=== PATIENT | male | born 1945 | race Caucasian/White ===

== ENCOUNTER 2023-03-21 08:45 | Outpatient (CLI) | payer MEDICARE, BC, SELFPAY | END 2023-03-21 08:46 | disposition home or self-care (01) | LOC: AMB 03-23 16:17 | PROVIDERS: PCP Family Medicine; Visit Provider Family Medicine | DX: R53.1 Weakness (principal) | CPT/HCPCS: A0425; A0429 ==

== ENCOUNTER 2023-03-21 09:42 | Inpatient (IN) | payer MEDICARE, BC, SELFPAY ==
[2023-03-21] VITALS (17 sets, daily range): BP systolic 83–144; BP diastolic 46–84; PULSE 59–67; RESP 14–22; TEMP 36.4–37.6; O2SAT 90–97; BMI 59.1
--- NOTE | 2023-03-21 11:00 | ED.GENADULT ---
HPI - General Adult General Chief complaint: Unspecified Complaint, Adult Stated complaint: Fall, weakness Time Seen by Provider: 03/21/23 09:44 History of Present Illness HPI narrative: lives at home with and daughter. EMS report unclean conditions in the home, pt unkept. found on the floor unable to get himself up. pt weighs approx 400 lbs. daughter is care transition coordinator, is disabled. pt has open wound to right side abd. has no complaints 78-year-old man presenting to the emergency department brought by EMS accompanied by daughter Zulema and son Jackson. He does not have any particular complaints moist but has been having some mid left chest discomfort not exactly pleuritic that has been present for a few days now. He would associate this historically with pneumonia he says. Daughter cares for him I believe formally as the FEATHER EDGER living in the home as of the last year or so. Fritz is spouse has also been ill having just returned to home a couple days ago. Son Jackson last month lost his . This morning Fritz apparently got up when normally would just be in the bedroom transition to commode and back, attempted to walk to the mini Fridge and fell. He notes that his knees just crack crunch. Does not describe any injury to his knees. No new neck or back pain. Does not report hitting his head either. Was not able to get up and was probably down for 3 or 4 hours. Apparently has just developed a small cough but otherwise is in usual state of health. Compromised by severe obesity. Prefers to lie generally on his left side and so carefully monitored for skin breakdown here. Will then roll to his right really likes to keep the urinal. Lying on his back tends to make it harder to breathe. He has not had any fever. Does have apparently underlying diagnosis of COPD. Would presume [place]. Does not sound like is on oxygen. Was not chilled until got to this emergency department; sounds like related to the coolness of the room? In assessing I see generalized redness over the left thigh area and Band-Aid in place has apparently likes to scratch this area. With last hospitalization per family report was transferred [facility] this facility [facility] [place]. Upon reviewing old records it looks like this was April of 2021. Discussion has been engaged in conversation about hospice. He did apparently said to EMS today just let me here by my . EMS noted home to be dirty. Daughter says that she has been trying to keep him rolled off of 1 side where he can end up in his urine for a time. Chronically dry mouth. Related Data Home Medications Medication Instructions Recorded Confirmed albuterol sulfate 90 mcg/actuation 2 inh inhalation Q4H PRN 03/21/23 03/21/23 aerosol inhaler (Ventolin HFA) allopurinol 300 mg tablet 300 mg PO DAILY gout pain 03/21/23 03/21/23 amiodarone 200 mg tablet 200 mg PO DAILY 03/21/23 03/21/23 apixaban 5 mg tablet (Eliquis) 5 mg PO BID 03/21/23 03/21/23 atorvastatin 40 mg tablet 40 mg PO QHS 03/21/23 03/21/23 buspirone 15 mg tablet 15 mg PO BID 03/21/23 03/21/23 cholecalciferol (vitamin D3) 50 50 mcg PO DAILY 03/21/23 03/21/23 mcg (2,000 unit) capsule fluticasone furoate 200 1 inh inhalation DAILY 03/21/23 03/21/23 mcg/actuation blister powder for inhalation (Arnuity Ellipta) ipratropium 0.5 mg-albuterol 3 mg 3 ml inhalation Q6H PRN 03/21/23 03/21/23 (2.5 mg base)/3 mL nebulization soln lisinopril 2.5 mg tablet 2.5 mg PO HS 03/21/23 03/21/23 loperamide 2 mg tablet 2 mg PO Q6H PRN 03/21/23 03/21/23 metoprolol succinate 50 mg 50 mg PO DAILY 03/21/23 03/21/23 tablet,extended release 24 hr omeprazole 20 mg capsule,delayed 20 mg PO DAILY 03/21/23 03/21/23 release potassium chloride 10 mEq 20 meq PO DAILY 03/21/23 03/21/23 tablet,extended release torsemide 20 mg tablet 20 mg PO BID 03/21/23 03/21/23 umeclidinium 62.5 mcg/actuation 1 inh inhalation DAILY 03/21/23 03/21/23 blister powder for inhalation (Incruse Ellipta) Allergies Allergy/AdvReac Type Severity Reaction Status Date / Time No Known Drug Allergies Allergy Verified 03/21/23 15:16 Review of Systems Status of ROS: Reports: 6 or more systems reviewed and unremarkable except as noted in History and below [facility] Medical History (Updated 03/21/23 @ 20:30 by Yandy Butts MD) BMI 50.0-59.9, adult ?Z68.43 - Body mass index [BMI] 50.0-59.9, adult (ICD-10) Non-insulin dependent diabetes mellitus GHAZALA (obstructive sleep apnea) ?G47.33 - Obstructive sleep apnea (adult) (pediatric) (ICD-10) Hyperlipidemia ?E78.5 - Hyperlipidemia, unspecified (ICD-10) Essential hypertension ?I10 - Essential (primary) hypertension (ICD-10) Stage 3a chronic kidney disease (CKD) ?N18.31 - Chronic kidney disease, stage 3a (ICD-10) Heart failure with reduced ejection fraction ?I50.20 - Unspecified systolic (congestive) heart failure (ICD-10) Surgical History (Updated 03/21/23 @ 15:00 by Yandy Butts MD) Amputation of left great toe ?S98.112A - Complete traumatic amputation of left great toe, initial encounter (ICD-10) H/O endoscopy ?Z98.890 - Other specified postprocedural states (ICD-10) Hx of colonoscopy ?Z98.890 - Other specified postprocedural states (ICD-10) H/O parathyroidectomy ?Z98.890 - Other specified postprocedural states (ICD-10) ?Z90.89 - Acquired absence of other organs (ICD-10) Social History (Updated 03/21/23 @ 16:04 by Yandy Butts MD) Narrative: Lives with daughter and . Uses walker for ambulation. Son Jackson would be medical decision maker if needed. Nonsmoker, no concerning ETOH use. Requests DNR/DNI status. What is your current living situation?: I presently have a place to live Problems where you live: water leaks Problems where you live details: water leaks in the basement In the past 12 months, utilities in danger of being shut off: no In past 12 months, lack of transportation kept you from medical appts, meetings, work, or getting things needed for daily living: no In the past 12 mos, have been you worried that your food would run out before you had money to buy more?: never true In the past 12 mos, the food you bought just didn't last and you didn't have money to buy more?: never true Highest level of school completed/degree received: high school graduate Smoking Status: Former smoker What tobacco products do you use: cigarettes Smoking quit date/years: >15 years ago How often do you have a drink containing alcohol: never AUDIT-C Alcohol total score: 0 Non-prescribed substance use: denies use Caffeine: Yes (occasional) How often does anyone, including family, friends and others, physically hurt you: never How often does anyone, including family, friends and others, insult or talk down to you: never How often does anyone, including family, friends and others, threaten you with harm: never How often does anyone, including family, friends and others, scream or curse at you: never service: No Exam Narrative: Exam Narrative: Here with appropriately attentive and helpful family. Pleasant. Fully alert. Mildly labored but does not appear short of breath necessarily. Rather dry lips and very dry mouth. Cranial nerves 2-12 intact. Pupils are 3 mm and equal. Head looks to be atraumatic. With some difficulty in assistance by son and daughter, lift him upright in the bed. Lungs sound to be clear. Heart is in a regular rate and rhythm. Distant but no murmur auscultated. Abdomen is obese soft appears to be nontender until palpation in the right lower abdominal pannus. Mildly tender. There is erythema calor and induration broadly. Not actually with significant intertrigo. There is a little serous fluid on the surface but no clear ulceration. The left thigh and hip area is more darkly erythematous with calor and the some induration. Not so tender to palpation. Band-Aid is noted in an area of dry skin but I do not see significant breakdown here either. Centrally though there is some erythema. Daughter reports that this is an area that has just healed and had been an ulceration. Lower extremities with what looks to be more chronic dependent edema 1+. Nails are thickened. I do not see inflammatory changes below the knee. Knees look to be without acute injury. Genitourinary with generally erythematous scrotal tissue but not indurated or with significant calor. Const: Vital Signs, click to edit/add: Vital Signs - 24 hr 03/21/23 10:05 03/21/23 11:02 03/21/23 11:32 Temperature 97.6 F Pulse Rate 62 66 Pulse Rate [Right Femoral] 61 Respiratory Rate 22 14 16 Blood Pressure 104/65 111/69 Blood Pressure [Ri ght Upper Arm] 144/74 H Pulse Oximetry 94 91 94 Oxygen Delivery Me thod Room Air Nasal Cannula Oxygen Flow Rate 2 03/21/23 12:32 03/21/23 13:03 03/21/23 13:33 Temperature Pulse Rate 62 61 66 Pulse Rate [Right Femoral] Respiratory Rate 16 16 16 Blood Pressure 105/51 L 101/66 107/58 L Blood Pressure [Ri ght Upper Arm] Pulse Oximetry 94 96 96 Oxygen Delivery Me thod Nasal Cannula Oxygen Flow Rate 1 03/21/23 13:34 03/21/23 13:45 03/21/23 14:00 Temperature Pulse Rate 64 64 61 Pulse Rate [Right Femoral] Respiratory Rate Blood Pressure Blood Pressure [Ri ght Upper Arm] Pulse Oximetry 95 97 93 Oxygen Delivery Me thod Oxygen Flow Rate 03/21/23 14:05 03/21/23 14:15 03/21/23 14:30 Temperature Pulse Rate 64 63 59 L Pulse Rate [Right Femoral] Respiratory Rate Blood Pressure 94/52 L Blood Pressure [Ri ght Upper Arm] Pulse Oximetry 95 92 92 Oxygen Delivery Me thod Oxygen Flow Rate 03/21/23 14:33 Temperature Pulse Rate 62 Pulse Rate [Right Femoral] Respiratory Rate Blood Pressure 83/46 L Blood Pressure [Ri ght Upper Arm] Pulse Oximetry 91 Oxygen Delivery Me thod Oxygen Flow Rate Documenting provider has reviewed patient's vital signs: yes Course Vital Signs Vital signs: Initial Vital Signs Temperature 97.6 F 03/21/23 10:05 Temperature Source Temporal Artery Scan 03/21/23 10:05 Pulse Rate 61 03/21/23 10:05 Respiratory Rate 22 03/21/23 10:05 Blood Pressure 144/74 H 03/21/23 10:05 Blood Pressure Mean 97 03/21/23 10:05 Blood Pressure Position Sitting 03/21/23 10:05 Pulse Oximetry 94 03/21/23 10:05 Oxygen Delivery Method Room Air 03/21/23 10:05 Vital Signs Temperature 97.6 F 03/21/23 10:05 Pulse Rate 61 03/21/23 10:05 Respiratory Rate 22 03/21/23 10:05 Blood Pressure 144/74 H 03/21/23 10:05 Pulse Oximetry 94 03/21/23 10:05 Oxygen Delivery Method Room Air 03/21/23 10:05 Temperature 100.0 F H 03/22/23 00:05 Pulse Rate 64 03/22/23 00:05 Respiratory Rate 18 03/22/23 00:05 Blood Pressure 139/69 03/22/23 00:05 Pulse Oximetry 92 03/22/23 00:05 Oxygen Delivery Method Nasal Cannula 03/22/23 00:05 Oxygen Flow Rate 1 03/22/23 00:05 Medications Administered Medications: Generic Name Dose Route Start Last Admin Trade Name Freq PRN Reason Stop Dose Admin Apixaban 5 mg 03/21/23 21:00 03/21/23 21:24 Apixaban 5 Mg Tablet PO 5 mg BID JOCELYN Administration Atorvastatin Calcium 40 mg 03/21/23 21:00 03/21/23 21:25 Atorvastatin Calcium 40 Mg Tablet PO 40 mg HS JOCELYN Administration Buspirone HCl 15 mg 03/21/23 21:00 03/21/23 21:24 Buspirone 10 Mg Tablet PO 15 mg BID JOCELYN Administration Piperacillin Sod/Tazobactam 100 mls @ 200 mls/hr 03/21/23 16:00 03/21/23 22:04 Sod 3.375 gm/ Sodium Chloride IVPB 200 mls/hr Q6H JOCELYN Administration Insulin Aspart 0 unit 03/21/23 17:30 03/21/23 21:57 Insulin Aspart 100 Unit/Ml SUBCUT 2 unit ACHS JOCELYN Administration Protocol Sodium Chloride 5 ml 03/21/23 21:00 03/21/23 21:21 Sodium Chloride 0.9 % (Flush) 10 Ml Syringe IVF Not Given BID JOCELYN Discontinued Medications Generic Name Dose Route Start Last Admin Trade Name Freq PRN Reason Stop Dose Admin Sodium Chloride 500 mls @ 500 mls/hr 03/21/23 11:28 03/21/23 12:30 0.9 % Sodium Chloride 500 Ml IV 03/21/23 12:27 Infused .Q1H ONE Infusion Sodium Chloride 500 mls @ 250 mls/hr 03/21/23 15:16 03/21/23 17:51 0.9 % Sodium Chloride 500 Ml IV 03/21/23 17:15 250 mls/hr .Q2H ONE Administration Medical Decision Making MDM Narrative Medical decision making narrative: I am unsure what baseline weight actually is. Might be up and retaining fluid some heart failure exacerbation. May have other infectious etiology compromising generalized deconditioning. Evaluate for renal compromise being down for hours. Certainly might be evolving sepsis. Blood cultures to be collected. Not clear that is having exacerbation of depression though daughter notes that he has been disinclined to do much for himself lately. Unclear if that simply related to physical health. Chest discomfort is described I think is probably more positional. Will evaluate though for pneumonia or maybe pneumothorax. Not described as pleuritic. Given degree of weakness demonstrated and I think family's inability to manage at home will need to be admitted somewhere. I would anticipate [facility] placement. Probably rather tenuous health status and may be developing a cellulitis/panniculitis. Will initiate 500 mL bolus of fluid and reassess. Vitals look good right now though when I was interviewing Fritz systolic was around 107 when she would expected to be in the 120s. 144 on arrival. I was not able to visualize buttocks on initial evaluation but daughter reassures that she sees them regularly and they are without skin issue. CRP mildly elevated 2.3 lactate also a 2.3. White count is a little bit over 14,000. Chest x-ray reviewed by me seems to have some evidence of congestion. I do not see clear infiltrate Radiology over-read as below Indication: Chest pain and dyspnea Technique: Chest 1 view Comparison: Chest x-ray 05/24/2021 Findings/Impression: Cardiovascular and mediastinum: Marked cardiomegaly. Lungs and pleural space: Low lung volumes with pulmonary cephalization and mild interstitial prominence consistent with pulmonary edema. Bones and soft tissues: No acute findings. Vitals have been stable. On reassessment no worse no better except for feeling it harder to bring his left foot up. Initially what seems to be considered dorsiflexion is actually that he is having pain with elevation of his leg specifically bending his left knee. Evaluating his knee again I see some very subtle stippling infrapatellar. I do not appreciate an effusion here. Not really with reproducible discomfort to palpation but certainly with flexion. We can x-ray this knee though I think it will be absent any acute abnormality. X-ray three-view of the left knee reviewed by me shows patella in place. Some severe osteoarthritic changes. Radiology over-read below Three views left knee. FINDINGS: BONES: No fracture. Normal mineralization. No focal bone lesion. JOINT: Normal knee joint alignment. No knee joint effusion. Joint spaces: Tricompartmental osteoarthritis with near complete loss of the joint space in the medial compartment. Soft Tissues: Anterior soft tissue swelling. No foreign body. IMPRESSION: Anterior left knee soft tissue swelling. No fracture dislocation seen. Underlying tricompartmental osteoarthritis. Have discussed with hospitalist for admission. Will need to yet initiate antibiotics. Focus would be the skin though again concerns still of potential sepsis. Lab Data Lab results reviewed: Yes I reviewed the patient's lab results Labs: Lab Results 03/21/23 03/21/23 03/21/23 Range/Units 10:54 11:32 11:50 WBC 14.25 H (4.50-11.00) K/uL RBC 4.78 (4.30-5.90) m/uL Hgb 13.5 (13.5-17.5) gm/dL Hct 42.6 (37.0-53.0) % MCV 89 (80-100) fL MCH 28 (26-34) pg MCHC 32 (32-36) gm/dL RDW Coeff of [place] 14.4 (11.5-15.5) % Plt Count 304 (140-440) K/uL Neut % (Auto) 79.2 H (42.0-72.0) % Lymph % (Auto) 14.7 L (20-44) % Burnett % (Auto) 4.8 (0.0-11.0) % Eos % (Auto) 0.8 (0.0-7.0) % Baso % (Auto) 0.2 (0.0-3.0) % Neut # (Auto) 11.30 H (1.7-7.0) K/uL Lymph # (Auto) 2.10 (0.90-2.90) K/uL Burnett # (Auto) 0.70 (0.00-0.90) K/UL Eos # (Auto) 0.10 (0.00-0.50) K/uL Baso # (Auto) 0.00 (0.00-0.30) K/uL Abs Immat Gran (auto) 0.00 (0.00-0.30) K/uL Imm/Tot Granulo (auto) 0.3 % VBG pH 7.343 (7.32-7.43) VBG pCO2 56 H (40-50) mmHG VBG pO2 32.9 (25-47) mmHG VBG HCO3 31 H (21-28) mmol/L Sodium 139 (135-149) mmol/L Potassium 4.4 (3.6-5.1) mmol/L Chloride 103 (96-114) mmol/L Carbon Dioxide 29 (20-32) mmol/L Anion Gap 7 (7-15) mEq/L BUN 35 H (7-30) mg/dL Creatinine 1.2 (0.5-1.5) mg/dL Estimated Creat Clear 50.73 Estimated GFR 62 ml/min Glucose 178 H (60-115) mg/dL Lactate 2.3 H (0.5-1.9) mmol/L Calcium 9.4 (8.4-10.6) mg/dL Magnesium 2.4 (1.5-2.6) mg/dL Total Bilirubin 0.7 (0.1-1.5) mg/dL Direct Bilirubin 0.2 (0.0-0.5) mg/dL AST 26 (12-35) U/L ALT 26 (4-50) U/L Alkaline Phosphatase 112 (40-150) U/L Total Creatine Kinase 43 L (54-186) U/L Troponin I < 0.01 L (0.01-0.04) ng/mL C-Reactive Protein 2.3 H (0.5-1.0) mg/dL NT-Pro-B Natriuret Pep 537 pg/mL Total Protein 7.4 (6.0-8.3) g/dL Albumin 4.1 (3.3-5.0) g/dL Urine Color Yellow (Yellow) Urine Appearance Clear (Clear) Urine pH 6.5 (5.0-8.5) Ur Specific [place] 1.015 (1.000-1.030) Urine Protein Negative (Negative) Urine Glucose (UA) Negative (Negative) Urine Ketones Negative (Negative) Urine Blood Negative (Negative) Urine Nitrite Negative (Negative) Urine Bilirubin Negative (Negative) Urine Urobilinogen 1.0 (0.2-1.0) Ur Leukocyte Esterase Negative (Negative) Urine RBC 0-2 (0-2) Urine WBC 0-2 (0-5) Ur Squamous Epith Cells Few (None-Few) Urine Bacteria Few A (None) Ethyl Alcohol < 0.01 L (0.01-0.03) % SARS-CoV-2 (PCR) Negative SARS-CoV-2 (Negative) Influenza Type A (PCR) Negative PCR FLU A (Negative) Influenza Type B (PCR) Negative PCR FLU B (Negative) RSV (PCR) Negative PCR RSV (Negative) POC Troponin I 0.01 (0.01-0.04) ng/ml ECG Data Attestation: I personally reviewed and interpreted this ECG as follows: (Initial EKG showing what looks to be normal sinus rhythm. I believe I see P-waves buried in there. Certainly very regular. Baseline irritability. Rate of 64) Discharge Plan Discharge Clinical Impression: Cellulitis, Panniculitis, Weakness Patient Disposition: Admitted As Observation Condition: Stable
[2023-03-21 11:02] LABS: Appearance Urine Clear (Clear); Bilirubin Urine Negative (Negative); Blood Urine Negative (Negative); Color Urine Yellow (Yellow); Glucose Urine Negative (Negative); Ketones Urine Negative (Negative); Leukocyte Esterase Urine Negative (Negative); Nitrite Urine Negative (Negative); Protein Urine Negative (Negative); Specific Gravity Urine 1.015 (1.000-1.030); pH Urine 6.5 (5.0-8.5)
[2023-03-21] MEDS: 0.9 % SODIUM CHLORIDE 500 ML 500 ML IV (11:30)
[2023-03-21 11:31] LABS: Bacteria Urine Few; RBC Urine 0-2 (0-2); Squamous Epithelial Cell Urine Few (None-Few); WBC Urine 0-2 (0-5)
--- NOTE | 2023-03-21 11:31 | CRLHL7_ITS ---
For Patients: As a result of the Century Cures Act, medical imaging exams and procedure reports are released immediately into your electronic medical record. You may view this report before your referring provider. If you have questions, please contact your health care provider. Indication: Chest pain and dyspnea Technique: Chest 1 view Comparison: Chest x-ray 05/24/2021 Findings/Impression: Cardiovascular and mediastinum: Marked cardiomegaly. Lungs and pleural space: Low lung volumes with pulmonary cephalization and mild interstitial prominence consistent with pulmonary edema. Bones and soft tissues: No acute findings. Dictated by Rakan Carroll MD @ 03/21/2023 12:20:25 PM (Electronically Signed)
[2023-03-21 12:02] LABS: HCO3 VBG 31 mmol/L (21-28); Lactate* 2.3 mmol/L (0.5-1.9); PCO2 VBG 56 mmHG (40-50); PO2 VBG 32.9 mmHG (25-47); pH VBG 7.343 (7.32-7.43)
[2023-03-21 12:04] LABS: Basophils Percent Auto 0.2 % (0.0-3.0); Eosinophils Percent Auto 0.8 % (0.0-7.0); Hematocrit 42.6 % (37.0-53.0); Hemoglobin* 13.5 gm/dL (13.5-17.5); Immature Granulocytes Pct Auto 0.3 %; Lymphocytes Percent Auto 14.7 % (20-44); Mean Corpuscular HGB Conc 32 gm/dL (32-36); Mean Corpuscular Hemoglobin 28 pg (26-34); Mean Corpuscular Volume 89 fL (80-100); Monocytes Percent Auto 4.8 % (0.0-11.0); Neutrophils Percent Auto 79.2 % (42.0-72.0); Platelet Count* 304 K/uL (140-440); RDW Coefficient of Variation % 14.4 % (11.5-15.5); Red Blood Count 4.78 m/uL (4.30-5.90); White Blood Count* 14.25 K/uL (4.50-11.00)
[2023-03-21 12:17] LABS: Troponin, Point-of-Care* 0.01 ng/ml (0.01-0.04)
[2023-03-21 12:21] LABS: Albumin* 4.1 g/dL (3.3-5.0); Chloride* 103 mmol/L (96-114)
[2023-03-21 12:22] LABS: Potassium* 4.4 mmol/L (3.6-5.1); Sodium* 139 mmol/L (135-149)
[2023-03-21 12:23] LABS: Creatinine* 1.2 mg/dL (0.5-1.5); Est. Creatinine Clearance* 50.73; Estimated Glomerular Filt Rate 62 ml/min
[2023-03-21 12:24] LABS: Alkaline Phosphatase* 112 U/L (40-150); Anion Gap 7 mEq/L (7-15); Aspartate Amino Transferase* 26 U/L (12-35); Bilirubin Direct* 0.2 mg/dL (0.0-0.5); Bilirubin Total* 0.7 mg/dL (0.1-1.5); Blood Urea Nitrogen* 35 mg/dL (7-30); Carbon Dioxide* 29 mmol/L (20-32); Creatine Kinase* 43 U/L (54-186); Total Protein* 7.4 g/dL (6.0-8.3)
[2023-03-21 12:25] LABS: Alanine Aminotransferase* 26 U/L (4-50); Calcium* 9.4 mg/dL (8.4-10.6); Glucose* 178 mg/dL (60-115); Magnesium* 2.4 mg/dL (1.5-2.6)
[2023-03-21 12:27] LABS: C Reactive Protein* 2.3 mg/dL (0.5-1.0)
[2023-03-21 12:33] LABS: Ethanol* < 0.01 % (0.01-0.03)
[2023-03-21 12:46] LABS: NT Pro B Type NatriureticPept* 537 pg/mL; Troponin I* < 0.01 ng/mL (0.01-0.04)
[2023-03-21 12:48] LABS: PCR FLU A Negative PCR FLU A (Negative); PCR FLU B Negative PCR FLU B (Negative); PCR RSV Negative PCR RSV (Negative); SARS PCR* Negative SARS-CoV-2 (Negative)
[2023-03-21 12:55] LABS: Slide Review Reflex No
--- NOTE | 2023-03-21 13:54 | CRLHL7_ITS ---
For Patients: As a result of the Cures Act, medical imaging exams and procedure reports are released immediately into your electronic medical record. You may view this report before your referring provider. If you have questions, please contact your health care provider. INDICATION: Fall, knee cap pain COMPARISON: None. TECHNIQUE: Three views left knee. FINDINGS: BONES: No fracture. Normal mineralization. No focal bone lesion. JOINT: Normal knee joint alignment. No knee joint effusion. Joint spaces: Tricompartmental osteoarthritis with near complete loss of the joint space in the medial compartment. Soft Tissues: Anterior soft tissue swelling. No foreign body. IMPRESSION: Anterior left knee soft tissue swelling. No fracture dislocation seen. Underlying tricompartmental osteoarthritis. Dictated by Adriana Madden MD @ 03/21/2023 2:18:44 PM (Electronically Signed)
--- NOTE | 2023-03-21 14:17 | ED.NURSE ---
Report given to ALANNA Hansen.
--- NOTE | 2023-03-21 15:00 | PM.IMHP1 ---
Hospitalist- H&P: HPI History of Present Illness Date Seen: 03/21/23 Chief complaint: Fall, weakness Narrative: Fritz Siddiqui is a 78 year old male who presented to the ER by ambulance this morning after falling at home. He got up this morning, used the commode, walked to his mini fridge for a pop, and had a fall. Notes mild lightheadedness before falling, doesn't think he had chest pain or palpitations. Fell onto knees, had some pain in L knee upon arrival. No other concerns, but was too weak to go back home from ED (lives with daughter and , who recently was hospitalized). ER Course and Findings: - WBC 14 with PMN predominance, lactate 2.3, concern for cellulitis over L pannus and L lateral thigh - hypotension (BP patel 83/46; on chart review tends to run lower BPs - last clinic visit 102/70s) - hypoxia requiring low dose supplemental oxygen (known history of COPD and GHAZALA, occasionally wears oxygen at home at night, not using CPAP) - reassuring EKG and negative troponin - CK 43, Creatinine 1.2, BUN 35 - no acute findings on L knee Xray, concern for mild fluid overload on CXR Patient is feeling not great when I see him on the floor, no specific concerns. Medical histories updated below. PCP is Dr. Phan at [facility]. Review of Systems Narrative: - intermittent constipation - no urinary concerns - no fever - chronic WINTER, no CP PFSH PFSH Medical History (Updated 03/21/23 @ 20:30 by Yandy Butts MD) BMI 50.0-59.9, adult ?Z68.43 - Body mass index [BMI] 50.0-59.9, adult (ICD-10) Non-insulin dependent diabetes mellitus GHAZALA (obstructive sleep apnea) ?G47.33 - Obstructive sleep apnea (adult) (pediatric) (ICD-10) Hyperlipidemia ?E78.5 - Hyperlipidemia, unspecified (ICD-10) Essential hypertension ?I10 - Essential (primary) hypertension (ICD-10) Stage 3a chronic kidney disease (CKD) ?N18.31 - Chronic kidney disease, stage 3a (ICD-10) Heart failure with reduced ejection fraction ?I50.20 - Unspecified systolic (congestive) heart failure (ICD-10) Surgical History (Updated 03/21/23 @ 15:00 by Yandy Butts MD) Amputation of left great toe ?S98.112A - Complete traumatic amputation of left great toe, initial encounter (ICD-10) H/O endoscopy ?Z98.890 - Other specified postprocedural states (ICD-10) Hx of colonoscopy ?Z98.890 - Other specified postprocedural states (ICD-10) H/O parathyroidectomy ?Z98.890 - Other specified postprocedural states (ICD-10) ?Z90.89 - Acquired absence of other organs (ICD-10) Social History (Updated 03/21/23 @ 16:04 by Yandy Butts MD) Narrative: Lives with daughter and . Uses walker for ambulation. Son Jackson would be medical decision maker if needed. Nonsmoker, no concerning ETOH use. Requests DNR/DNI status. Smoking Status: Smoker, status unknown How often do you have a drink containing alcohol: never AUDIT-C Alcohol total score: 0 Non-prescribed substance use: denies use Meds Home Medications and Allergies Home Medications Medication Instructions Recorded Confirmed Type albuterol sulfate 90 mcg/actuation 2 inh inhalation Q4H PRN 03/21/23 03/21/23 History aerosol inhaler (Ventolin HFA) allopurinol 300 mg tablet 300 mg PO DAILY gout pain 03/21/23 03/21/23 History amiodarone 200 mg tablet 200 mg PO DAILY 03/21/23 03/21/23 History apixaban 5 mg tablet (Eliquis) 5 mg PO BID 03/21/23 03/21/23 History atorvastatin 40 mg tablet 40 mg PO QHS 03/21/23 03/21/23 History buspirone 15 mg tablet 15 mg PO BID 03/21/23 03/21/23 History cholecalciferol (vitamin D3) 50 50 mcg PO DAILY 03/21/23 03/21/23 History mcg (2,000 unit) capsule fluticasone furoate 200 1 inh inhalation DAILY 03/21/23 03/21/23 History mcg/actuation blister powder for inhalation (Arnuity Ellipta) ipratropium 0.5 mg-albuterol 3 mg 3 ml inhalation Q6H PRN 03/21/23 03/21/23 History (2.5 mg base)/3 mL nebulization soln lisinopril 2.5 mg tablet 2.5 mg PO HS 03/21/23 03/21/23 History loperamide 2 mg tablet 2 mg PO Q6H PRN 03/21/23 03/21/23 History metoprolol succinate 50 mg 50 mg PO DAILY 03/21/23 03/21/23 History tablet,extended release 24 hr omeprazole 20 mg capsule,delayed 20 mg PO DAILY 03/21/23 03/21/23 History release potassium chloride 10 mEq 20 meq PO DAILY 03/21/23 03/21/23 History tablet,extended release torsemide 20 mg tablet 20 mg PO BID 03/21/23 03/21/23 History umeclidinium 62.5 mcg/actuation 1 inh inhalation DAILY 03/21/23 03/21/23 History blister powder for inhalation (Incruse Ellipta) Home Medication Comments: Patient unsure about medications, administered by daughter. Allergies Allergy/AdvReac Type Severity Reaction Status Date / Time No Known Drug Allergies Allergy Verified 03/21/23 15:16 Exam Narrative: Exam Narrative: GEN: Alert and laying on right side, nontoxic HEENT: EOMIs bilaterally, no scleral icterus CV: Pulse palpates as RRR, distant heart sounds R: Decreased bilateral bases, no wheezing Ab: Protuberant, no ttp Ext: Partial amputation of L great toe, + onychomycosis Skin: Confluent erythema noted on LLQ of abdomen/pannus, lateral L thigh, no induration or fluctuance. Small skin opening/eschar on LLQ, patient appears to have been scratching at this area Neuro: Fine tremor noted of RLE during exam; patient believes this is chronic/unchanged Psych: Appropriate Const: Vital Signs, click to edit/add: Vital Signs - 24 hr 03/21/23 10:05 03/21/23 11:02 03/21/23 11:32 Temperature 97.6 F Pulse Rate 62 66 Pulse Rate [Right Femoral] 61 Respiratory Rate 22 14 16 Blood Pressure 104/65 111/69 Blood Pressure [Ri ght Upper Arm] 144/74 H Pulse Oximetry 94 91 94 Oxygen Delivery Me thod Room Air Nasal Cannula Oxygen Flow Rate 2 03/21/23 12:32 03/21/23 13:03 03/21/23 13:33 Temperature Pulse Rate 62 61 66 Pulse Rate [Right Femoral] Respiratory Rate 16 16 16 Blood Pressure 105/51 L 101/66 107/58 L Blood Pressure [Ri ght Upper Arm] Pulse Oximetry 94 96 96 Oxygen Delivery Me thod Nasal Cannula Oxygen Flow Rate 1 03/21/23 13:34 03/21/23 13:45 03/21/23 14:00 Temperature Pulse Rate 64 64 61 Pulse Rate [Right Femoral] Respiratory Rate Blood Pressure Blood Pressure [Ri ght Upper Arm] Pulse Oximetry 95 97 93 Oxygen Delivery Me thod Oxygen Flow Rate 03/21/23 14:05 03/21/23 14:15 03/21/23 14:30 Temperature Pulse Rate 64 63 59 L Pulse Rate [Right Femoral] Respiratory Rate Blood Pressure 94/52 L Blood Pressure [Ri ght Upper Arm] Pulse Oximetry 95 92 92 Oxygen Delivery Me thod Oxygen Flow Rate 03/21/23 14:33 Temperature Pulse Rate 62 Pulse Rate [Right Femoral] Respiratory Rate Blood Pressure 83/46 L Blood Pressure [Ri ght Upper Arm] Pulse Oximetry 91 Oxygen Delivery Me thod Oxygen Flow Rate Hospitalist - H&P: Result Labs Labs: Short CBC 03/21/23 Range/Units 11:50 WBC 14.25 H (4.50-11.00) K/uL Hgb 13.5 (13.5-17.5) gm/dL Hct 42.6 (37.0-53.0) % Plt Count 304 (140-440) K/uL BMP 03/21/23 11:50 Sodium 139 Potassium 4.4 Chloride 103 Carbon Dioxide 29 BUN 35 H Creatinine 1.2 Glucose 178 H Calcium 9.4 Cardiac Enzymes 03/21/23 Range/Units 11:50 Total Creatine Kinase 43 L (54-186) U/L Troponin I < 0.01 L (0.01-0.04) ng/mL Liver Function 03/21/23 Range/Units 11:50 Total Bilirubin 0.7 (0.1-1.5) mg/dL Direct Bilirubin 0.2 (0.0-0.5) mg/dL AST 26 (12-35) U/L ALT 26 (4-50) U/L Alkaline Phosphatase 112 (40-150) U/L Albumin 4.1 (3.3-5.0) g/dL Urine 03/21/23 Range/Units 10:54 Urine Color Yellow (Yellow) Urine Appearance Clear (Clear) Urine pH 6.5 (5.0-8.5) Ur Specific [place] 1.015 (1.000-1.030) Urine Protein Negative (Negative) Urine Glucose (UA) Negative (Negative) Assessment and Plan Assessment and plan (1) Cellulitis: Problem comment: - in an immunocompromised patient (DM2, a fib, CKD) - treat with Zosyn (questionable remote history of PCN allergy, tolerated Zosyn during hospitalization in 2021 per chart review), blood cultures pending Status: Acute (2) Weakness: Problem comment: - likely related to acute illness - also noted to have hypotension. DDx: iatrogenic, related to illness, related to CHF - hold antihypertensive medications, gentle IVF, therapies ordered Status: Acute (3) Non-insulin dependent diabetes mellitus: Problem comment: - last A1C 6.6 - home medications, SSI, accuchecks Status: Acute (4) GHAZALA (obstructive sleep apnea): Problem comment: - occasionally uses supplemental oxygen at home, not using CPAP - elevated CO2, concerning for obesity hypoventilation syndrome - RT referral Status: Acute (5) Stage 3a chronic kidney disease (CKD): Status: Acute (6) Heart failure with reduced ejection fraction: Problem comment: - last LEONEL in 2021 (pre-cardioversion for afib), results below. Will repeat 03/22 given weakness, hypotension Final Impressions: 1. Limited LEONEL done pre-cardioversion. 2. Normal left ventricular size, moderate decreased global systolic function with an estimated EF of 35 - 40%. 3. Right ventricular cavity size is normal, global systolic RV function is mildly reduced. 4. Mildly enlarged left atrium. 5. The mitral valve is normal, mild mitral regurgitation. 6. Atrial septum is intact by color flow Doppler. 7. No evidence of thrombus present in the left atrial appendage. Status: Acute Plan - per above - SCDs, Apixaban, Omeprazole, po intake for ppx - patient requests DNR/DNI status
--- NOTE | 2023-03-21 16:00 | PC.NURSE ---
Pt arrived to room CCU-4 from ED via stretcher at 1442 pm, 5 person assist to transfer pt to bariatric bed. Please see admission data collection. Unable to obtain accurate weight as bed not zeroed prior to transfer completion. Initial questions completed prior to Dr. Butts's evaluation at 1510 pm. Report to Emeli Rodriguez RN for onoming shift who will complete admission papers and voice data communications engineer. Pt's dtr stated he hadn't eaten since this morning and he was shaking with hunger. Spot check of BG 167, reassurance given and popsicle provided per CORPORATE LIBRARIAN.
--- NOTE | 2023-03-21 17:28 | RESP.RT ---
Pt seen. Spoke with PT and his daughter. He does not wear any PAP, they are aware he has GHAZALA. Per Pt and daughter he will rip it off. They have never followed up and received a home machine, and will not be doing so. He wears 1.5L of oxygen at home, at his discretion, per pt, When I fell like it Asked Pt if he slept in a recliner and he said no, in bed and his daughter props him up with pillows. Provider and Charge nurse made aware of this.
[2023-03-21] MEDS: 0.9 % SODIUM CHLORIDE 500 ML 500 ML 250 ML IV (17:51)
[2023-03-21] MEDS: PIPERACILLIN/TAZOBACTAM 3.375 GM in 0.9 % SODIUM CHLORIDE Mini-bag 100 ML IVPB ×2 (17:52→22:04)
[2023-03-21] MEDS: INSULIN ASPART 100 UNIT/ML SUBCUT ×2 (17:54→21:57)
[2023-03-21] MEDS: BUSPIRONE 10 MG TABLET 15 MG PO (21:24)
[2023-03-21] MEDS: APIXABAN 5 MG TABLET PO (21:24)
[2023-03-21] MEDS: ATORVASTATIN CALCIUM 40 MG TABLET PO (21:25)
[2023-03-22] VITALS (11 sets, daily range): BP systolic 120–154; BP diastolic 54–95; PULSE 61–74; RESP 16–20; TEMP 36.4–37.8; O2SAT 91–96; BMI 59.1
[2023-03-22] MEDS: PIPERACILLIN/TAZOBACTAM 3.375 GM in 0.9 % SODIUM CHLORIDE Mini-bag 100 ML IVPB ×4 (04:06→22:21)
[2023-03-22] MEDS: MENTHOL 57 GM GEL 1 APPLIC TOPICAL ×4 (04:56→22:27)
[2023-03-22 06:35] LABS: HCO3 VBG 30 mmol/L (21-28); Lactate* 1.5 mmol/L (0.5-1.9); PCO2 VBG 57 mmHG (40-50); PO2 VBG 26.6 mmHG (25-47); pH VBG 7.331 (7.32-7.43)
[2023-03-22] MEDS: OMEPRAZOLE 20 MG CAPSULE DR PO (06:40)
[2023-03-22 06:42] LABS: Basophils Percent Auto 0.2 % (0.0-3.0); Eosinophils Percent Auto 2.5 % (0.0-7.0); Hematocrit 41.7 % (37.0-53.0); Hemoglobin* 13.3 gm/dL (13.5-17.5); Immature Granulocytes Pct Auto 1.3 %; Lymphocytes Percent Auto 17.9 % (20-44); Mean Corpuscular HGB Conc 32 gm/dL (32-36); Mean Corpuscular Hemoglobin 28 pg (26-34); Mean Corpuscular Volume 89 fL (80-100); Monocytes Percent Auto 6.5 % (0.0-11.0); Neutrophils Percent Auto 71.6 % (42.0-72.0); Platelet Count* 309 K/uL (140-440); RDW Coefficient of Variation % 14.7 % (11.5-15.5); Red Blood Count 4.68 m/uL (4.30-5.90)
[2023-03-22 06:53] LABS: Slide Review Reflex No
--- NOTE | 2023-03-22 06:55 | PC.NURSE ---
END OF SHIFT NOTE: PT PLEASANT AND COOPERATIVE. A&Ox3. PT DENIES CP, N/V. C/O SOB WHEN HOB IS LOWERED. PT REMAINED IN BED DURING HS. PT IN BARIATRIC BED. A4 TO BOOST; PER REPORT A2-3 TO PIVOT TO BSC. VSS ON 1L NC; TMAX 100.0 REDUCED BY DECREASING ROOM TEMP AND REMOVING HEAVY COVERS. REDNESS TO RIGHT SIDE OF ABD REMAINS WITHIN OUTLINED MARKED. USES URINAL. CALL LIGHT WITHIN PT?S REACH. ?
[2023-03-22 07:09] LABS: Albumin* 3.9 g/dL (3.3-5.0)
[2023-03-22 07:10] LABS: Chloride* 100 mmol/L (96-114); Potassium* 4.4 mmol/L (3.6-5.1); Sodium* 135 mmol/L (135-149)
[2023-03-22 07:12] LABS: Anion Gap 7 mEq/L (7-15); Bilirubin Total* 1.3 mg/dL (0.1-1.5); Carbon Dioxide* 28 mmol/L (20-32); Creatinine* 1.6 mg/dL (0.5-1.5); Est. Creatinine Clearance* 38.05; Estimated Glomerular Filt Rate 44 ml/min
[2023-03-22 07:13] LABS: Alanine Aminotransferase* 24 U/L (4-50); Alkaline Phosphatase* 107 U/L (40-150); Aspartate Amino Transferase* 27 U/L (12-35); Blood Urea Nitrogen* 42 mg/dL (7-30); Calcium* 9.2 mg/dL (8.4-10.6); Glucose* 173 mg/dL (60-115)
[2023-03-22] MEDS: INSULIN ASPART 100 UNIT/ML SUBCUT ×3 (08:37→20:42)
[2023-03-22] MEDS: allopurinoL 300 MG TABLET PO (08:38)
[2023-03-22] MEDS: BUSPIRONE 10 MG TABLET 15 MG PO ×2 (08:38→20:41)
[2023-03-22] MEDS: APIXABAN 5 MG TABLET PO ×2 (08:38→20:40)
[2023-03-22] MEDS: AMIODARONE 200 MG TABLET PO (08:38)
[2023-03-22] MEDS: SODIUM CHLORIDE 0.9 % (FLUSH) 10 ML SYRINGE 5 ML IVF (11:00)
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
[2023-03-22] MEDS: PERFLUTREN LIPID MICROSPHERES 2 ML VIAL IV (14:45)
--- NOTE | 2023-03-22 14:46 | PM.IMPN1 ---
Progress Note: A&P Assessment and plan (1) Cellulitis: Problem details: - in an immunocompromised patient (DM2, a fib, CKD) - treat with Zosyn (questionable remote history of PCN allergy, tolerated Zosyn during hospitalization in 2021 per chart review), blood cultures pending Status: Acute (2) Weakness: Problem details: - likely related to acute illness and underlying physically deconditioned state - also noted to have hypotension. DDx: iatrogenic, related to illness, related to CHF - hold antihypertensive medications, gentle IVF, therapies ordered - physical therapy and occupational therapy ordered. Will discuss with child protective services social worker. Status: Acute (3) Non-insulin dependent diabetes mellitus: Problem details: - last A1C 6.6 - home medications, SSI, accuchecks Status: Acute (4) GHAZALA (obstructive sleep apnea): Problem details: - occasionally uses supplemental oxygen at home, not using CPAP - elevated CO2, concerning for obesity hypoventilation syndrome - RT referral Status: Acute (5) Stage 3a chronic kidney disease (CKD): Status: Acute (6) Heart failure with reduced ejection fraction: Problem details: - last LEONEL in 2021 (pre-cardioversion for afib), results below. Will repeat 03/22 given weakness, hypotension. Results still pending as of 3:00 p.m. 03/22/2023. Final Impressions: 1. Limited LEONEL done pre-cardioversion. 2. Normal left ventricular size, moderate decreased global systolic function with an estimated EF of 35 - 40%. 3. Right ventricular cavity size is normal, global systolic RV function is mildly reduced. 4. Mildly enlarged left atrium. 5. The mitral valve is normal, mild mitral regurgitation. 6. Atrial septum is intact by color flow Doppler. 7. No evidence of thrombus present in the left atrial appendage. Status: Acute Plan 1. Reviewed impression with patient 2. Discuss plans as specified above 3. Patient agreeable. Time Spent With Patient Total time spent: 40 minutes Subjective Date Seen: 03/22/23 Interval history: HPI: Fritz Siddiqui is a 78 year old male who presented to the ER by ambulance this morning after falling at home. He got up this morning, used the commode, walked to his mini fridge for a pop, and had a fall. Notes mild lightheadedness before falling, doesn't think he had chest pain or palpitations. Fell onto knees, had some pain in L knee upon arrival. No other concerns, but was too weak to go back home from ED (lives with daughter and , who recently was hospitalized). ER Course and Findings: - WBC 14 with PMN predominance, lactate 2.3, concern for cellulitis over L pannus and L lateral thigh - hypotension (BP patel 83/46; on chart review tends to run lower BPs - last clinic visit 102/70s) - hypoxia requiring low dose supplemental oxygen (known history of COPD and GHAZALA, occasionally wears oxygen at home at night, not using CPAP) - reassuring EKG and negative troponin - CK 43, Creatinine 1.2, BUN 35 - no acute findings on L knee Xray, concern for mild fluid overload on CXR Hospital day 2. Patient tells me he does not feel any worse and may be slightly better than yesterday. He has been weak and unable to walk in the home for close to a week. Still too weak to be able to stand and walk. He does not think he can return home at this juncture. His preference is to be discharged from the hospital to a transitional care unit where he can receive additional rehabilitation before he transitions back to his home. Exam Narrative: Exam Narrative: I examined patient in his hospital room. No obvious acute distress. Asleep in laying on his left side. Easily arousable. Alert and oriented to self, place, time, situation. Friendly, articulate, cooperative. Lungs are clear to auscultation. Heart tones distant but regular rhythm. Abdomen morbidly obese with massive pannus. Skin on abdomen remarkable for erythema with superficial excoriations medial and laterally on the left. Warm but not hot to touch. Intertriginous skin folds areas are clean and dry, including in the groin. Multiple areas of bollae on skin of legs and buttock. Some of the bollae have been sheared open with patient transferring himself in his bed. Clear serous drainage from open bollae. No focal motor neurologic deficits. Generalized weakness. Unable to stand even with standing device due to weakness of legs. Const: Vital Signs, click to edit/add: Vital Signs - 24 hr 03/21/23 14:55 03/21/23 19:00 03/21/23 21:26 Temperature 97.9 F Pulse Rate Pulse Rate [Left A pical] 61 Pulse Rate [Pulse Oximeter] Respiratory Rate 22 20 20 Blood Pressure [Ri ght Arm] 122/84 Pulse Oximetry 90 92 93 Oxygen Delivery Me thod Nasal Cannula Nasal Cannula Nasal Cannula Oxygen Flow Rate 1 1 1 03/22/23 00:05 03/22/23 00:05 03/22/23 00:05 Temperature Pulse Rate 64 Pulse Rate [Left A pical] Pulse Rate [Pulse Oximeter] 64 Respiratory Rate 18 18 Blood Pressure [Mn ght Arm] Pulse Oximetry 92 Oxygen Delivery Me thod Nasal Cannula Oxygen Flow Rate 1 03/22/23 00:05 03/22/23 04:00 03/22/23 07:00 Temperature 100.0 F H 98.9 F Pulse Rate Pulse Rate [Left A pical] Pulse Rate [Pulse Oximeter] 64 67 Respiratory Rate 18 20 20 Blood Pressure [Ri ght Arm] 139/69 138/95 H Pulse Oximetry 92 94 93 Oxygen Delivery Me thod Nasal Cannula Nasal Cannula Nasal Cannula Oxygen Flow Rate 1 1 1 03/22/23 07:00 03/22/23 07:25 03/22/23 12:20 Temperature 97.8 F 97.7 F Pulse Rate 64 Pulse Rate [Left A pical] Pulse Rate [Pulse Oximeter] 74 66 Respiratory Rate 20 20 Blood Pressure [Ri ght Arm] 154/85 H 120/54 L Pulse Oximetry 92 94 Oxygen Delivery Me thod Nasal Cannula Room Air Oxygen Flow Rate 1 03/22/23 14:18 Temperature Pulse Rate Pulse Rate [Left A pical] Pulse Rate [Pulse Oximeter] Respiratory Rate 16 Blood Pressure [[facility]] Pulse Oximetry 91 Oxygen Delivery Me thod Room Air Oxygen Flow Rate Documenting provider has reviewed patient's vital signs: yes Labs Labs: Laboratory Results - last 24 hr 03/22/23 05:53 WBC 12.60 H RBC 4.68 Hgb 13.3 L Hct 41.7 MCV 89 MCH 28 MCHC 32 RDW Coeff of [place] 14.7 Plt Count 309 Neut % (Auto) 71.6 Lymph % (Auto) 17.9 L [place] % (Auto) 6.5 Eos % (Auto) 2.5 Baso % (Auto) 0.2 Neut # (Auto) 9.00 H Lymph # (Auto) 2.30 [place] # (Auto) 0.80 Eos # (Auto) 0.30 Baso # (Auto) 0.00 Abs Immat Gran (auto) 0.20 Imm/Tot Granulo (auto) 1.3 VBG pH 7.331 VBG pCO2 57 H VBG pO2 26.6 VBG HCO3 30 H Sodium 135 Potassium 4.4 Chloride 100 Carbon Dioxide 28 Anion Gap 7 BUN 42 H Creatinine 1.6 H Estimated Creat Clear 38.05 Estimated GFR 44 Glucose 173 H Lactate 1.5 Calcium 9.2 Total Bilirubin 1.3 AST 27 ALT 24 Alkaline Phosphatase 107 Total Protein 7.0 Albumin 3.9
[2023-03-22] MEDS: 0.9 % SODIUM CHLORIDE 1000 ml 1,000 ML 75 ML IV (15:15)
--- NOTE | 2023-03-22 16:40 | PC.NURSE ---
Addendum entered by Sushila Florian RN 03/22/23 18:14: Patient up in recliner, via ceiling lift, for one hour this evening Original Note: Shift Summary: Patient pleasant and cooperative. Worked with therapy today, did not tolerate medistand, pre therapy recommendation patient should be using ceiling lift. Offered to get patient into recliner for dinner via ceiling lift, patient refused stating he does not like the ceiling lift and would rather pivot. Informed patient of safety concerns for both him and staff, will approach again when dinner arrives. Vitals stable, o2 >90% on RA. Patient had blisters on outer right thigh, abdominal fold and marsh which had broken, covered with ABD. Noted blisters on coccyx and applied mepilex. Patient able to reposition self in bed, currently side lying. Denied pain throughout shift. Using urinal in bed.
[2023-03-22] MEDS: ATORVASTATIN CALCIUM 40 MG TABLET PO (20:41)
[2023-03-23] VITALS (9 sets, daily range): BP systolic 122–164; BP diastolic 53–80; PULSE 65–92; RESP 18–20; TEMP 36.4–36.9; O2SAT 90–97
[2023-03-23] MEDS: PIPERACILLIN/TAZOBACTAM 3.375 GM in 0.9 % SODIUM CHLORIDE Mini-bag 100 ML IVPB (03:58)
[2023-03-23] MEDS: MENTHOL 57 GM GEL 1 APPLIC TOPICAL ×4 (04:01→22:42)
[2023-03-23] MEDS: 0.9 % SODIUM CHLORIDE 1000 ml 1,000 ML 75 ML IV (04:46)
[2023-03-23] MEDS: OMEPRAZOLE 20 MG CAPSULE DR PO (06:17)
[2023-03-23 06:51] LABS: Hematocrit 37.4 % (37.0-53.0); Mean Corpuscular HGB Conc 32 gm/dL (32-36); Mean Corpuscular Hemoglobin 28 pg (26-34); Mean Corpuscular Volume 88 fL (80-100); Platelet Count* 254 K/uL (140-440); Red Blood Count 4.25 m/uL (4.30-5.90)
--- NOTE | 2023-03-23 06:51 | PC.NURSE ---
End of shift note [id number]: Pt noted to be alert & oriented x 4. He requires use of ceiling lift when transferring in and out of bed though has been in bed this shift. He is able to reposition independently in bed though needs encouragement to do so. Pt noted to have minor 2/10 pain to bilateral knees at start of shift though he reports scheduled Bengay has been helping with this discomfort. Official Court Interpreter changed dressing to lateral/posterior R thigh last evening due to moderate amount of serous drainage observed to old dressing due to previously noted sheared blisters located to this area. IV patent with NS running at 75 mL/hr. Pt continent of bladder using urinal and sacral dressing noted to be C/D/I. Pt has been afebrile throughout the shift. Pt on telemetry with NSR noted. Pt has been on 1-2 LPM?of oxygen this shift as he has dx of GHAZALA though no CPAP here and states he does not wear one at home though also states he does have oxygen at home to use PRN.
[2023-03-23 06:53] LABS: HCO3 VBG 29 mmol/L (21-28); Lactate* 0.8 mmol/L (0.5-1.9); PCO2 VBG 49 mmHG (40-50); pH VBG 7.381 (7.32-7.43)
[2023-03-23 07:04] LABS: Slide Review Reflex No
[2023-03-23 07:12] LABS: Chloride* 105 mmol/L (96-114)
[2023-03-23 07:13] LABS: Potassium* 4.1 mmol/L (3.6-5.1); Sodium* 137 mmol/L (135-149)
[2023-03-23 07:15] LABS: Creatinine* 1.2 mg/dL (0.5-1.5); Est. Creatinine Clearance* 50.73; Estimated Glomerular Filt Rate 62 ml/min
[2023-03-23 07:16] LABS: Anion Gap 3 mEq/L (7-15); Blood Urea Nitrogen* 29 mg/dL (7-30); Calcium* 8.6 mg/dL (8.4-10.6); Carbon Dioxide* 29 mmol/L (20-32); Glucose* 155 mg/dL (60-115); Phosphorus* 3.1 mg/dL (2.5-4.5)
[2023-03-23 07:17] LABS: Magnesium* 2.4 mg/dL (1.5-2.6)
[2023-03-23 07:19] LABS: C Reactive Protein* 4.1 mg/dL (0.5-1.0)
[2023-03-23 07:24] LABS: NT Pro B Type NatriureticPept* 953 pg/mL
[2023-03-23] MEDS: BUSPIRONE 10 MG TABLET 15 MG PO ×2 (08:43→21:02)
[2023-03-23] MEDS: allopurinoL 300 MG TABLET PO (08:43)
[2023-03-23] MEDS: APIXABAN 5 MG TABLET PO ×2 (08:43→21:02)
[2023-03-23] MEDS: AMIODARONE 200 MG TABLET PO (08:43)
[2023-03-23] MEDS: INSULIN ASPART 100 UNIT/ML SUBCUT ×2 (08:44→12:38)
[2023-03-23] MEDS: CEFAZOLIN 1 GM in 0.9 % SODIUM CHLORIDE Mini-bag 100 ML IVPB ×2 (10:46→17:27)
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
--- NOTE | 2023-03-23 14:11 | PC.NURSE ---
End of shift. pt has been pleasant. no pain per pt. pt is alert & oriented x 4. he is eating, drinking and voiding. he is using the urinal and BSC, he is up with 2 assist walker and GB, he can turn and pivot and take a few steps. He is able to reposition him self independently in bed . dressing to lateral/posterior R thigh is C/D/I. SL is patent with NS running at 75 mL/hr. Sacral dressing noted to be C/D/I. telemetry is NSR noted. Pt has been on RA this shift. BS 153, and 198 he said he is not a diabetic. he is a fall risk. he needs encouragment.
--- NOTE | 2023-03-23 15:20 | PM.IMPN1 ---
Progress Note: A&P Assessment and plan (1) Cellulitis: Problem details: Switch from Zosyn to Ancef for ongoing treatment of cellulitis. Clinically much better. Status: Acute (2) Weakness: Problem details: I believe this is a case of acute on chronic weakness. Patient reports he was ambulatory prior to his onset of illness and his fall. It appears however that he is quite weak and deconditioned at baseline by his history. Likely will need [facility] for [facility]. Status: Acute (3) Non-insulin dependent diabetes mellitus: Problem details: - last A1C 6.6 - home medications, SSI, accuchecks Status: Acute (4) GHAZALA (obstructive sleep apnea): Problem details: - occasionally uses supplemental oxygen at home, not using CPAP - elevated CO2, concerning for obesity hypoventilation syndrome - RT referral Status: Acute (5) Stage 3a chronic kidney disease (CKD): Problem details: Creatinine 1.6 yesterday and 1.2 today Status: Acute (6) Heart failure with reduced ejection fraction: Problem details: His echo from 2 days ago is much improved compared to his echo from 2 years ago. Now with ejection fraction of 65-70% and no marked valvular disease or evidence of right heart failure Status: Acute Plan Patient be continued in the hospital for ongoing IV antibiotics and treatment of his abdominal cellulitis, ongoing therapy, ongoing assessment of obstructive sleep apnea. Anticipate discharge to [facility] when bed is available Time Spent With Patient Total time spent: 50 minutes Subjective Date Seen: 03/23/23 Interval history: Fritz Siddiqui is a 78 year old male who presented to the ER by ambulance March 21 after falling at home. He got up on the day of admission, used the commode, walked to his mini fridge for a pop, and had a fall. Notes mild lightheadedness before falling, doesn't think he had chest pain or palpitations. Fell onto knees, had some pain in L knee upon arrival. No other concerns, but was too weak to go back home from ED (lives with daughter and , who recently was hospitalized). ER Course and Findings: - WBC 14 with PMN predominance, lactate 2.3, concern for cellulitis over L pannus and L lateral thigh - hypotension (BP patel 83/46; on chart review tends to run lower BPs - last clinic visit 102/70s) - hypoxia requiring low dose supplemental oxygen (known history of COPD and GHAZALA, occasionally wears oxygen at home at night, not using CPAP) - reassuring EKG and negative troponin - CK 43, Creatinine 1.2, BUN 35 - no acute findings on L knee Xray, concern for mild fluid overload on CXR Treated with Zosyn for cellulitis of his pannus and thigh. He is a evaluated by PT and OT who assess that he is too weak at this time to be independent at home. He has blisters in the presacral area on his buttock. He reports he is quite sedentary at home, in bed or chair all the time. Reports appetite is okay. Pain is manageable. He has been able to eat and drink. Exam Narrative: Exam Narrative: He is alert and appears in no distress. He is lying on his left side. Respirations are clear to auscultation though breath sounds are diminished. Cardiovascular: S1, S2, regular rate and rhythm. Abdomen: Bowel sounds are active. Abdomen is soft. He has erythema over the left lower aspect of the skin of his abdomen. Small superficial ulcerations with mature eschar in place. No open or draining wounds. No apparent subcutaneous abscess or focal tenderness. The area of erythema is much less than the line previously drawn on his abdomen to demarcate the extent of his cellulitis. Lower extremities with Const: Vital Signs, click to edit/add: Vital Signs - 24 hr 03/22/23 19:32 03/22/23 22:32 03/22/23 22:32 Temperature 97.6 F 97.5 F L Pulse Rate Pulse Rate [Left A pical] Pulse Rate [Pulse Oximeter] 63 61 Respiratory Rate 18 18 18 Blood Pressure [Le ft Arm] Blood Pressure [Ri ght Arm] 144/67 H 140/66 H Pulse Oximetry 91 96 96 Oxygen Delivery Me thod Room Air Nasal Cannula Nasal Cannula Oxygen Flow Rate 1 1 2 03/22/23 22:55 03/22/23 23:00 03/23/23 02:33 Temperature 97.5 F L Pulse Rate 62 Pulse Rate [Left A pical] 61 Pulse Rate [Pulse Oximeter] 61 65 Respiratory Rate 18 20 Blood Pressure [Le ft Arm] 152/67 H Blood Pressure [Ri ght Arm] Pulse Oximetry 92 Oxygen Delivery Me thod Nasal Cannula Oxygen Flow Rate 2 03/23/23 07:19 03/23/23 08:01 03/23/23 08:01 Temperature 97.9 F Pulse Rate 65 Pulse Rate [Left A pical] 65 Pulse Rate [Pulse Oximeter] 65 Respiratory Rate 20 18 Blood Pressure [Le ft Arm] Blood Pressure [Ri ght Arm] 122/60 Pulse Oximetry 97 97 Oxygen Delivery Me thod Nasal Cannula Nasal Cannula Oxygen Flow Rate 2 2 03/23/23 08:05 03/23/23 11:30 Temperature 98.0 F Pulse Rate Pulse Rate [Left A pical] 65 91 Pulse Rate [Pulse Oximeter] 65 91 Respiratory Rate 18 18 Blood Pressure [Le ft Arm] Blood Pressure [Ri ght Arm] 164/80 H Pulse Oximetry 92 Oxygen Delivery Me thod Room Air Oxygen Flow Rate Documenting provider has reviewed patient's vital signs: yes Labs Labs: Laboratory Results - last 24 hr 03/23/23 06:06 WBC 8.30 RBC 4.25 L Hgb 12.0 L Hct 37.4 MCV 88 MCH 28 MCHC 32 Plt Count 254 VBG pH 7.381 VBG pCO2 49 VBG pO2 57.0 H VBG HCO3 29 H Sodium 137 Potassium 4.1 Chloride 105 Carbon Dioxide 29 Anion Gap 3 L BUN 29 Creatinine 1.2 Estimated Creat Clear 50.73 Estimated GFR 62 Glucose 155 H Lactate 0.8 Calcium 8.6 Phosphorus 3.1 Magnesium 2.4 C-Reactive Protein 4.1 H NT-Pro-B Natriuret Pep 953
--- NOTE | 2023-03-23 19:27 | PC.NURSE ---
Nursing Care Hours: [id number] Pt this shift calm and cooperative, alert and oriented. Used urinal in bed. Bandage on R thigh changed d/t drainage and dressing sticking to wounds. Joy Loading Machine Operator replaced with non adhesive dressing. No c/o pain. Stable on RA.
[2023-03-23] MEDS: ATORVASTATIN CALCIUM 40 MG TABLET PO (21:02)
[2023-03-24] VITALS (8 sets, daily range): BP systolic 122–154; BP diastolic 51–96; PULSE 60–79; RESP 18–20; TEMP 36.3–37; O2SAT 90–92
[2023-03-24] MEDS: CEFAZOLIN 1 GM in 0.9 % SODIUM CHLORIDE Mini-bag 100 ML IVPB ×3 (02:02→17:41)
[2023-03-24] MEDS: MENTHOL 57 GM GEL 1 APPLIC TOPICAL ×4 (03:55→22:42)
[2023-03-24] MEDS: OMEPRAZOLE 20 MG CAPSULE DR PO (06:10)
[2023-03-24 06:20] LABS: HCO3 VBG 28 mmol/L (21-28); PCO2 VBG 46 mmHG (40-50); PO2 VBG 58.7 mmHG (25-47); pH VBG 7.392 (7.32-7.43)
[2023-03-24 06:27] LABS: Hematocrit 36.2 % (37.0-53.0); Hemoglobin* 11.6 gm/dL (13.5-17.5); Mean Corpuscular HGB Conc 32 gm/dL (32-36); Mean Corpuscular Hemoglobin 28 pg (26-34); Mean Corpuscular Volume 88 fL (80-100); Platelet Count* 241 K/uL (140-440); White Blood Count* 9.44 K/uL (4.50-11.00)
[2023-03-24 06:45] LABS: Slide Review Reflex Yes
--- NOTE | 2023-03-24 06:47 | PC.NURSE ---
End of shift note [id number]: Pt noted to be alert & oriented and able to make needs known. He has been continent of bladder using bedside urinal. VSS and pt has been afebrile. Pt has been on RA throughout the shift. IV to R FA SL after receiving ordered IV fluids. Pt noted to have scratched right buttock open. Pattern Grader cleansed area with wound cleanser before patting dry and covering with non-adhesive dressing. Pattern Grader provided education about refraining from itching skin as this can cause cellulitis infection which pt has been recently treated for (abdominal cellulitis). Sacral Mepilex noted to be C/D/I. Pt noted to have several blisters to buttocks and thighs including sheared blisters to posterior R thigh. Pattern Grader provided wound care to this area including cleansing areas with wound cleanser, patting dry and covering with non-adhesive dressings. Tissue to sheared blisters noted to be beefy red and drainage noted to be serous. Blood glucose of 132 last evening with HS snack of sugar free ice cream provided. Pt able to reposition independently in bed though needs encouragement to participate in cares. He remains on IV ABX and remains on telemetry with NSR.
[2023-03-24 06:50] LABS: Chloride* 107 mmol/L (96-114); Sodium* 137 mmol/L (135-149)
[2023-03-24 06:51] LABS: Potassium* 3.9 mmol/L (3.6-5.1)
[2023-03-24 06:53] LABS: Anion Gap 5 mEq/L (7-15); Blood Urea Nitrogen* 20 mg/dL (7-30); Carbon Dioxide* 25 mmol/L (20-32); Creatinine* 0.9 mg/dL (0.5-1.5); Est. Creatinine Clearance* 60.88; Estimated Glomerular Filt Rate 87 ml/min; Glucose* 156 mg/dL (60-115)
[2023-03-24 06:54] LABS: Calcium* 8.6 mg/dL (8.4-10.6)
[2023-03-24] MEDS: APIXABAN 5 MG TABLET PO ×2 (09:33→21:08)
[2023-03-24] MEDS: BUSPIRONE 10 MG TABLET 15 MG PO ×2 (09:33→21:08)
[2023-03-24] MEDS: allopurinoL 300 MG TABLET PO (09:33)
[2023-03-24] MEDS: AMIODARONE 200 MG TABLET PO (09:34)
[2023-03-24] MEDS: INSULIN ASPART 100 UNIT/ML SUBCUT ×4 (09:35→21:12)
[2023-03-24] MEDS: SODIUM CHLORIDE 0.9 % (FLUSH) 10 ML SYRINGE 5 ML IVF ×2 (09:39→21:10)
--- NOTE | 2023-03-24 15:30 | PC.NURSE ---
Patient alert. Up in the chair once during shift with lift. Multiple open blisters( See flowsheet for details) and closed blisters on coccyx and other areas of the body. Wounds chronic and present on admission. Wound care performed this shift. vital signs stable. NSR on tele.
--- NOTE | 2023-03-24 15:49 | PM.IMPN1 ---
Progress Note: A&P Assessment and plan (1) Cellulitis: Problem details: Switch from Zosyn to Ancef for ongoing treatment of cellulitis. Clinically much better. Status: Acute (2) Weakness: Problem details: I believe this is a case of acute on chronic weakness. Patient reports he was ambulatory prior to his onset of illness and his fall. It appears however that he is quite weak and deconditioned at baseline by his history. [facility] Status: Acute (3) Non-insulin dependent diabetes mellitus: Problem details: - last A1C 6.6 - home medications, SSI, accuchecks Status: Acute (4) GHAZALA (obstructive sleep apnea): Problem details: - occasionally uses supplemental oxygen at home, not using CPAP - elevated CO2, concerning for obesity hypoventilation syndrome - RT referral Status: Acute (5) Stage 3a chronic kidney disease (CKD): Problem details: Creatinine improving. Resume home diuresis and blood pressure medicines Status: Acute (6) Heart failure with reduced ejection fraction: Problem details: His echo from 2 days ago is much improved compared to his echo from 2 years ago. Now with ejection fraction of 65-70% and no marked valvular disease or evidence of right heart failure Status: Acute (7) Discharge planning issues: Problem details: Patient and some members of his family do not want him to go to a long-term. Concerned that he will not be able to manage at home due to his relative weakness and deconditioning. Status: Acute (8) Pressure ulcers of skin of multiple topographic sites: Problem details: Right thigh and presacral skin with ulcers and blisters likely due to pressure. Likely a problem related to immobility to reposition himself at home. Status: Acute Plan Continue in hospital for treatment of cellulitis and pressure ulcers of the skin, cellulitis and safe discharge plan Time Spent With Patient Total time spent: Total time spent today is 40 minutes, 30 minutes in coordination of care discussing with patient other providers ongoing management of skin breakdown and cellulitis Subjective Date Seen: 03/24/23 Interval history: Fritz Siddiqui is a 78 year old male who presented to the ER by ambulance March 21 after falling at home. He got up on the day of admission, used the commode, walked to his mini fridge for a pop, and had a fall. Notes mild lightheadedness before falling, doesn't think he had chest pain or palpitations. Fell onto knees, had some pain in L knee upon arrival. No other concerns, but was too weak to go back home from ED (lives with daughter and , who recently was hospitalized). ER Course and Findings: - WBC 14 with PMN predominance, lactate 2.3, concern for cellulitis over L pannus and L lateral thigh - hypotension (BP patel 83/46; on chart review tends to run lower BPs - last clinic visit 102/70s) - hypoxia requiring low dose supplemental oxygen (known history of COPD and GHAZALA, occasionally wears oxygen at home at night, not using CPAP) - reassuring EKG and negative troponin - CK 43, Creatinine 1.2, BUN 35 - no acute findings on L knee Xray, concern for mild fluid overload on CXR Treated with Zosyn for cellulitis of his pannus and thigh. He is a evaluated by PT and OT who assess that he is too weak at this time to be independent at home. He has blisters in the presacral area on his buttock. He reports he is quite sedentary at home, in bed or chair all the time. Reports appetite is okay. Pain is manageable. He has been able to eat and drink. Yesterday he got up with therapy to transfer bed to chair. Today he transferred with use of ceiling lift. Family told social secretary yesterday that they want him to go home rather than to a long-term. Exam Narrative: Exam Narrative: He is alert and appears in no distress. He is oriented to his circumstances. Respirations are clear to auscultation. Cardiovascular: S1, S2, regular rate and rhythm. Abdomen is soft without tenderness or mass. Minimal erythema of the abdominal pannus. He has a purplish discoloration along the lateral left thigh. Some erythema and blistering along the right thigh. Const: Vital Signs, click to edit/add: Vital Signs - 24 hr 03/23/23 19:24 03/23/23 22:51 03/23/23 22:51 Temperature 97.8 F 98.4 F Pulse Rate Pulse Rate [Left A pical] Pulse Rate [Pulse Oximeter] 72 67 Respiratory Rate 20 20 20 Blood Pressure [Le ft Arm] Blood Pressure [Ri ght Arm] 138/53 L 132/65 Pulse Oximetry 90 92 92 Oxygen Delivery Me thod Room Air Room Air Room Air 03/23/23 23:00 03/23/23 23:00 03/24/23 02:55 Temperature 98.6 F Pulse Rate 67 Pulse Rate [Left A pical] Pulse Rate [Pulse Oximeter] 67 65 Respiratory Rate 20 18 Blood Pressure [Le ft Arm] Blood Pressure [Ri ght Arm] 147/57 H Pulse Oximetry 91 Oxygen Delivery Me thod Room Air 03/24/23 09:30 03/24/23 09:30 03/24/23 09:30 Temperature 97.6 F Pulse Rate 61 Pulse Rate [Left A pical] Pulse Rate [Pulse Oximeter] 73 Respiratory Rate 18 18 Blood Pressure [Le ft Arm] 139/51 L Blood Pressure [Ri ght Arm] Pulse Oximetry 90 90 Oxygen Delivery Co thod Room Air Room Air 03/24/23 09:30 03/24/23 11:00 03/24/23 15:30 Temperature 97.3 F L Pulse Rate Pulse Rate [Left A pical] 79 Pulse Rate [Pulse Oximeter] 73 Respiratory Rate 18 20 Blood Pressure [Le ft Arm] Blood Pressure [Ri ght Arm] 122/58 L Pulse Oximetry 91 90 Oxygen Delivery Co thod Room Air Room Air 03/24/23 15:30 Temperature 98 F Pulse Rate Pulse Rate [Left A pical] Pulse Rate [Pulse Oximeter] 70 Respiratory Rate 20 Blood Pressure [Le ft Arm] 154/57 H Blood Pressure [Ri ght Arm] Pulse Oximetry [address] [facility] Documenting provider has reviewed patient's vital signs: yes Labs Labs: Laboratory Results - last 24 hr 03/24/23 05:56 WBC 9.44 RBC 4.10 L Hgb 11.6 L Hct 36.2 L MCV 88 MCH 28 MCHC 32 Plt Count 241 Diff Slide Review Cancelled VBG pH 7.392 VBG pCO2 46 VBG pO2 58.7 H VBG HCO3 28 Sodium 137 Potassium 3.9 Chloride 107 Carbon Dioxide 25 Anion Gap 5 L BUN 20 Creatinine 0.9 Estimated Creat Clear 60.88 Estimated GFR 87 Glucose 156 H Calcium 8.6
[2023-03-24] MEDS: POTASSIUM CHLORIDE 10 MEQ CAPSULE ER 20 MEQ PO (16:30)
[2023-03-24] MEDS: FUROSEMIDE 10 MG/ML inj 40 MG IVP (16:30)
[2023-03-24] MEDS: METOPROLOL SUCCINATE (XL) 50 MG TAB PO (16:31)
--- NOTE | 2023-03-24 18:56 | PC.NURSE ---
Shift [id number]- Patient up to chair with ceiling lift and back to bed- needs encouragement to get out of bed. Bandages applied to blisters intact, some with some drainage. He is using urinal for voiding.
[2023-03-24] MEDS: ATORVASTATIN CALCIUM 40 MG TABLET PO (21:08)
[2023-03-24] MEDS: lisinopriL 5 MG TABLET 2.5 MG PO (21:10)
[2023-03-25] VITALS (9 sets, daily range): BP systolic 117–150; BP diastolic 61–69; PULSE 55–65; RESP 18–24; TEMP 36.6–36.7; O2SAT 90–93
[2023-03-25] MEDS: CEFAZOLIN 1 GM in 0.9 % SODIUM CHLORIDE Mini-bag 100 ML IVPB ×3 (02:15→17:36)
[2023-03-25] MEDS: 0.9 % SODIUM CHLORIDE 250 ml IV (02:19)
[2023-03-25] MEDS: MENTHOL 57 GM GEL 1 APPLIC TOPICAL ×3 (03:49→20:45)
[2023-03-25] MEDS: OMEPRAZOLE 20 MG CAPSULE DR PO (06:11)
[2023-03-25 06:38] LABS: HCO3 VBG 29 mmol/L (21-28); PCO2 VBG 48 mmHG (40-50); PO2 VBG 46.7 mmHG (25-47); pH VBG 7.386 (7.32-7.43)
[2023-03-25 07:18] LABS: Chloride* 105 mmol/L (96-114); Potassium* 4.3 mmol/L (3.6-5.1); Sodium* 137 mmol/L (135-149)
[2023-03-25 07:21] LABS: Anion Gap 6 mEq/L (7-15); Blood Urea Nitrogen* 19 mg/dL (7-30); Carbon Dioxide* 26 mmol/L (20-32); Creatinine* 0.9 mg/dL (0.5-1.5); Est. Creatinine Clearance* 60.88; Estimated Glomerular Filt Rate 87 ml/min; Glucose* 148 mg/dL (60-115)
[2023-03-25 07:22] LABS: Calcium* 8.9 mg/dL (8.4-10.6)
--- NOTE | 2023-03-25 07:34 | PC.NURSE ---
End of shift note [id number]: Pt alert & oriented x 4 and able to make needs known. He continues to require staff encouragement to participate in cares but can reposition independently side to side in bed. IV to R FA SL. Dressing to RLE changed due to moderate amount of serosanguinous drainage noted to old dressing covering sheared blisters. All other dressings present to posterior lower body noted to be C/D/I. Blood glucose of 164 noted at HS with scheduled Novolog SS administered. Pt reports intermitting nonproductive cough though LS clear to all lobes bilaterally. He remains afebrile and continues on IV ABX for cellulitis.
[2023-03-25 07:56] LABS: Hematocrit 38.8 % (37.0-53.0); Hemoglobin* 12.3 gm/dL (13.5-17.5); Mean Corpuscular HGB Conc 32 gm/dL (32-36); Mean Corpuscular Hemoglobin 28 pg (26-34); Mean Corpuscular Volume 89 fL (80-100); Platelet Count* 286 K/uL (140-440); Red Blood Count 4.38 m/uL (4.30-5.90); White Blood Count* 9.33 K/uL (4.50-11.00)
[2023-03-25 08:08] LABS: Slide Review Reflex No
[2023-03-25] MEDS: AMIODARONE 200 MG TABLET PO (08:09)
[2023-03-25] MEDS: TORSEMIDE 20 MG TABLET PO ×2 (08:09→17:36)
[2023-03-25] MEDS: APIXABAN 5 MG TABLET PO ×2 (08:10→20:41)
[2023-03-25] MEDS: lisinopriL 5 MG TABLET 2.5 MG PO ×2 (08:10→20:43)
[2023-03-25] MEDS: METOPROLOL SUCCINATE (XL) 50 MG TAB PO (08:11)
[2023-03-25] MEDS: allopurinoL 300 MG TABLET PO (08:11)
[2023-03-25] MEDS: BUSPIRONE 10 MG TABLET 15 MG PO ×2 (08:11→20:42)
[2023-03-25] MEDS: SODIUM CHLORIDE 0.9 % (FLUSH) 10 ML SYRINGE 5 ML IVF ×2 (08:12→20:44)
[2023-03-25] MEDS: POTASSIUM CHLORIDE 10 MEQ CAPSULE ER 20 MEQ PO (08:12)
[2023-03-25] MEDS: INSULIN ASPART 100 UNIT/ML SUBCUT ×2 (13:27→20:48)
--- NOTE | 2023-03-25 13:53 | P.IMPN_ITS ---
Progress Note: A&P Assessment and plan (1) Cellulitis: Problem details: On Ancef for cellulitis. Clinically resolving. Status: Acute (2) Weakness: Problem details: I believe this is a case of acute on chronic weakness. Patient reports he was ambulatory prior to his onset of illness and his fall. It appears however that he is quite weak and deconditioned at baseline by his history. Likely will need [facility] facility for rehab. Patient indicates he wants to go home but does not want to work with physical therapy today Status: Acute (3) Non-insulin dependent diabetes mellitus: Problem details: - last A1C 6.6 - home medications, SSI, accuchecks Status: Acute (4) GHAZALA (obstructive sleep apnea): Problem details: - occasionally uses supplemental oxygen at home, not using CPAP - elevated CO2, concerning for obesity hypoventilation syndrome Status: Acute (5) Stage 3a chronic kidney disease (CKD): Problem details: Creatinine improving. Resume home diuresis and blood pressure medicines Status: Acute (6) Heart failure with reduced ejection fraction: Problem details: His echo from 2 days ago is much improved compared to his echo from 2 years ago. Now with ejection fraction of 65-70% and no marked valvular disease or evidence of right heart failure Status: Acute (7) Discharge planning issues: Problem details: Patient and some members of his family do not want him to go to a residential. Concerned that he will not be able to manage at home due to his relative weakness and deconditioning. Status: Acute (8) Pressure ulcers of skin of multiple topographic sites: Problem details: Right thigh and presacral skin with ulcers and blisters likely due to pressure. Likely a problem related to immobility to reposition himself at home. Status: Acute Plan Continue in hospital pending plan for outpatient or residential placement for ongoing care. Time Spent With Patient Total time spent: Total time spent today is 50 minutes, 30 minutes in coordination of care discussing with patient and other staff management of his disability and immo bility and discharge planning Subjective Date Seen: 03/25/23 Interval history: Fritz Siddiqui is a 78 year old male who presented to the ER by ambulance March 21 after falling at home. He got up on the day of admission, used the commode, walked to his mini fridge for a pop, and had a fall. Notes mild lightheadedness before falling, doesn't think he had chest pain or palpitations. Fell onto knees, had some pain in L knee upon arrival. No other concerns, but was too weak to go back home from ED (lives with daughter and , who recently was hospitalized). In the emergency department he was diagnosed with a cellulitis of his pannus. He was noted to have blistering on his right thigh and sacral area thought secondary to pressure. He had erythema over his left thigh. He had hypoxia on admission and early on required some oxygen per nasal cannula but has for the last 3 days been off of oxygen. Clinically appears to have sleep apnea. Early in the admission patient was working with therapy and getting up to stand and transfer. In the last 2 days he has been refusing therapy to stand and transfer. He is requiring the ceiling lift to get him from bed to chair. He is not notifying the nurse when he is having a bowel movement in his bed or chair rather than using the commode. Patient continues to report that he would like to return home to be cared for by his daughter. I asked him what would be required for him to get to that level and he did not respond. He also did not respond when I asked him what were his goals of care. I attempted to reach his daughter but was unsuccessful. Exam Narrative: Exam Narrative: He is alert and appears in no distress. Respirations are clear to auscultation. Cardiovascular: S1, S2, regular rhythm. Abdomen is soft without tenderness. Minimal erythema over his lower abdominal pannus. Left thigh has a slight reddish purplish discoloration but otherwise does not appear to be actively infected. Sacral area has blisters without significant surrounding erythema the blisters blisters have ruptured. Right thigh over the greater trochanter area as well as distally on the right thigh have blisters have broken without significant surrounding erythema Const: Vital Signs, click to edit/add: Vital Signs - 24 hr 03/24/23 15:30 03/24/23 15:30 03/24/23 15:55 Temperature 98 F Pulse Rate 65 Pulse Rate [Pulse Oximeter] 70 Respiratory Rate 20 Blood Pressure [Le ft Arm] 154/57 H Blood Pressure [Ri ght Arm] Pulse Oximetry 90 90 Oxygen Delivery Me thod Room Air Room Air 03/24/23 19:57 03/24/23 22:59 01/20/24 23:00 Temperature 97.6 F Pulse Rate 60 Pulse Rate [Pulse Oximeter] 69 Respiratory Rate 18 20 Blood Pressure [Le ft Arm] Blood Pressure [Ri ght Arm] 132/96 H Pulse Oximetry 92 91 Oxygen Delivery Me thod Room Air 03/24/23 23:00 03/24/23 23:00 03/25/23 03:15 Temperature 98.2 F 98.1 F Pulse Rate Pulse Rate [Pulse Oximeter] 63 63 62 Respiratory Rate 20 20 20 Blood Pressure [Le ft Arm] Blood Pressure [Ri ght Arm] 138/69 130/62 Pulse Oximetry 91 92 Oxygen Delivery Me thod Room Air Room Air 03/25/23 07:40 03/25/23 07:40 03/25/23 07:40 Temperature Pulse Rate 63 Pulse Rate [Pulse Oximeter] Respiratory Rate 20 24 Blood Pressure [Le ft Arm] Blood Pressure [Ri ght Arm] Pulse Oximetry 91 Oxygen Delivery Me thod Room Air 03/25/23 07:40 03/25/23 11:00 Temperature 97.8 F 97.8 F Pulse Rate Pulse Rate [Pulse Oximeter] 61 61 Respiratory Rate 24 24 Blood Pressure [Le ft Arm] Blood Pressure [Ri ght Arm] 136/65 117/61 Pulse Oximetry 91 90 Oxygen Delivery Me thod Room Air Room Air Documenting provider has reviewed patient's vital signs: yes Labs Labs: Laboratory Results - last 24 hr 03/25/23 05:30 WBC 9.33 RBC 4.38 Hgb 12.3 L Hct 38.8 MCV 89 MCH 28 MCHC 32 Plt Count 286 VBG pH 7.386 VBG pCO2 48 VBG pO2 46.7 VBG HCO3 29 H Sodium 137 Potassium 4.3 Chloride 105 Carbon Dioxide 26 Anion Gap 6 L BUN 19 Creatinine 0.9 Estimated Creat Clear 60.88 Estimated GFR 87 Glucose 148 H Calcium 8.9
--- NOTE | 2023-03-25 19:58 | PC.NURSE ---
Pt needing ceiling lift from bed/chair & chair/bed. Stating I can't stand up from chair and get to commode. Incontinent of bowel laying on side while cleaning rodrick-area. water blisters on coccyx area covered with Mepilex. Water blisters on right, which had previously opened were cleaned with Vashe and covered with Telfa and clothe tape.
[2023-03-25] MEDS: ATORVASTATIN CALCIUM 40 MG TABLET PO (20:41)
[2023-03-26] MEDS: CEFAZOLIN 1 GM in 0.9 % SODIUM CHLORIDE Mini-bag 100 ML IVPB ×2 (01:58→10:14)
[2023-03-26] MEDS: SODIUM CHLORIDE 0.9 % (FLUSH) 10 ML SYRINGE 5 ML IVF ×2 (01:59→09:15)
[2023-03-26] MEDS: 0.9 % SODIUM CHLORIDE 250 ml IV (02:01)
[2023-03-26 03:02] VITALS: BP 109/68; PULSE 57; RESP 18; TEMP 36.6; O2SAT 89
[2023-03-26] MEDS: MENTHOL 57 GM GEL 1 APPLIC TOPICAL ×3 (03:08→16:48)
[2023-03-26] MEDS: OMEPRAZOLE 20 MG CAPSULE DR PO (06:07)
[2023-03-26 06:31] LABS: HCO3 VBG 32 mmol/L (21-28); PCO2 VBG 53 mmHG (40-50); PO2 VBG 66.9 mmHG (25-47); pH VBG 7.385 (7.32-7.43)
[2023-03-26 06:52] LABS: Hematocrit 38.7 % (37.0-53.0); Hemoglobin* 12.5 gm/dL (13.5-17.5); Mean Corpuscular HGB Conc 32 gm/dL (32-36); Mean Corpuscular Hemoglobin 29 pg (26-34); Mean Corpuscular Volume 88 fL (80-100); Platelet Count* 263 K/uL (140-440); Red Blood Count 4.39 m/uL (4.30-5.90); White Blood Count* 9.69 K/uL (4.50-11.00)
--- NOTE | 2023-03-26 06:59 | PC.NURSE ---
End of shift note [id number]: Pt remains alert & oriented x 4 and able to make needs known. He has had no c/o pain noted throughout the shift and has been continent of bladder using urinal. Weigh And Charge Worker changed dressing to R lower leg due to moderate amount of serous drainage observed to previous dressing covering sheared blisters. Pt remains on telemetry with asymptomatic sinus bradycardia noted. Pt able to reposition in bed with staff providing assistance PRN. Pt continues to require encouragement to participate in ADLs. Oxygen 2 LPM administered this morning as pt has dx of GHAZALA and O2 sat dropped to 79% on RA during sleep though pt reports he does not wear CPAP at home. Pt remains on IV ABX and has been afebrile throughout the shift. IV to L FA patent and SL. Blood glucose of 167 at HS last evening. Sacral Mepilex noted to be C/D/I. Pt's weight noted to be decreased 11 pounds compared to yesterday's weight on 03/25/23 as pt is currently taking diuretic per current order.
[2023-03-26 07:02] VITALS: PULSE 52
[2023-03-26 07:02] LABS: Slide Review Reflex No
[2023-03-26 07:05] LABS: Chloride* 102 mmol/L (96-114); Sodium* 136 mmol/L (135-149)
[2023-03-26 07:08] LABS: Anion Gap 4 mEq/L (7-15); Blood Urea Nitrogen* 19 mg/dL (7-30); Carbon Dioxide* 30 mmol/L (20-32); Creatinine* 0.9 mg/dL (0.5-1.5); Est. Creatinine Clearance* 60.88; Estimated Glomerular Filt Rate 87 ml/min; Glucose* 144 mg/dL (60-115)
[2023-03-26 07:09] LABS: Calcium* 8.7 mg/dL (8.4-10.6)
[2023-03-26 08:26] VITALS: BP 129/54; PULSE 58; RESP 16; TEMP 36.3; O2SAT 93
[2023-03-26] MEDS: BUSPIRONE 10 MG TABLET 15 MG PO (09:13)
[2023-03-26] MEDS: POTASSIUM CHLORIDE 10 MEQ CAPSULE ER 20 MEQ PO (09:13)
[2023-03-26] MEDS: TORSEMIDE 20 MG TABLET PO ×2 (09:13→14:22)
[2023-03-26] MEDS: METOPROLOL SUCCINATE (XL) 50 MG TAB PO (09:14)
[2023-03-26] MEDS: allopurinoL 300 MG TABLET PO (09:14)
[2023-03-26] MEDS: AMIODARONE 200 MG TABLET PO (09:14)
[2023-03-26] MEDS: lisinopriL 5 MG TABLET 2.5 MG PO (09:14)
[2023-03-26] MEDS: APIXABAN 5 MG TABLET PO (09:14)
[2023-03-26] MEDS: INSULIN ASPART 100 UNIT/ML SUBCUT ×2 (11:42→16:48)
[2023-03-26 11:45] VITALS: BP 113/56; PULSE 62; RESP 18; TEMP 36.6; O2SAT 91
[2023-03-26] MEDS: cephALEXin 500 MG CAPSULE PO ×2 (12:54→16:48)
--- NOTE | 2023-03-26 13:03 | PM.DS1 ---
DS: Providers Provider Date Seen: 03/26/23 Date of admission: 03/21/23 15:18 Primary care physician: Conor Phan MD Admitting Clinician: Yandy Butts MD Attending Physician on discharge: Ab Skelton MD Date of Discharge: 03/26/23 DS: Diagnosis Discharge Diagnosis (1) Cellulitis: Status: Acute Problem details: Involving abdominal pannus and to a lesser extent both thighs. On Ancef for cellulitis. Clinically resolving. Short course of outpatient Keflex (2) Weakness: Status: Acute Problem details: I believe this is a case of acute on chronic weakness. Patient reports he was ambulatory prior to his onset of illness and his fall. It appears however that he is quite weak and deconditioned at baseline by his history. Patient exhibiting limited willingness to stand and transfer here in the hospital but was able to do so today. Requesting to go home. (3) Pressure ulcers of skin of multiple topographic sites: Status: Acute Problem details: Right thigh and presacral skin with ulcers and blisters likely due to pressure. Likely a problem related to immobility and not regularly repositioning himself at home. (4) Discharge planning issues: Status: Acute Problem details: Patient and his daughter, his primary caregiver, both want him to go home. There is concern that this will not go well. This was discussed with the patient. (5) GHAZALA (obstructive sleep apnea): Status: Acute Problem details: - occasionally uses supplemental oxygen at home, not using CPAP - elevated CO2, concerning for obesity hypoventilation syndrome Intermittently hypoxic here and given a low dose of oxygen. Ultimately needs CPAP to addressed his sleep apnea (6) Stage 3a chronic kidney disease (CKD): Status: Acute Problem details: Creatinine improving. Resume home diuresis and blood pressure medicines (7) Heart failure with reduced ejection fraction: Status: Acute Problem details: His echo from 2 days ago is much improved compared to his echo from 2 years ago. Now with ejection fraction of 65-70% and no marked valvular disease or evidence of right heart failure (8) Non-insulin dependent diabetes mellitus: Status: Acute Problem details: - last A1C 6.6 - home medications, SSI, accuchecks DS: Summary Hospital Course Hospital Course: Fritz Siddiqui is a 78 year old male who presented to the ER by ambulance March 21 after falling at home. He got up on the day of admission, used the commode, walked to his mini fridge for a pop, and had a fall. Notes mild lightheadedness before falling, doesn't think he had chest pain or palpitations. Fell onto knees, had some pain in L knee upon arrival. No other concerns, but was too weak to go back home from ED (lives with daughter and , who recently was hospitalized). In the emergency department he was diagnosed with a cellulitis of his pannus. He was noted to have blistering on his right thigh and sacral area thought secondary to pressure. He had erythema over his left thigh. He had hypoxia on admission and early on required some oxygen per nasal cannula but has for the last 3 days been off of oxygen. Clinically appears to have sleep apnea. Early in the admission patient was working with therapy and getting up to stand and transfer. In the last 2 days he has been refusing therapy to stand and transfer. He is requiring the ceiling lift to get him from bed to chair. He is not notifying the nurse when he is having a bowel movement in his bed or chair rather than using the commode. Patient continues to report that he would like to return home to be cared for by his daughter. I asked him what would be required for him to get to that level and he did not respond. He also did not respond when I asked him what were his goals of care. I attempted to reach his daughter but was unsuccessful. Status at Discharge Functional status at discharge: bed bound Overall status at discharge: patient is progressing back to baseline Time Spent with Patient Time attestation: Total time spent providing and/or coordinating discharge services: Time spent: Greater than 30 minutes Exam Narrative: Exam Narrative: When I walk into his room he is sleeping with sonorous breathing he is semi recumbent in the recliner chair. When he is awake his breathing is unlabored. Clear breath sounds. Cardiovascular: S1, S2, regular rhythm. No murmur gallop or rub. Abdomen: Bowel sounds active there is no tenderness. Trace of erythema over the lowest aspect of his abdominal pannus no skin breakdown. Purplish discoloration of his left hip. No erythema the right hip. Bandages over superficial ulcers on the right thigh. Const: Vital Signs, click to edit/add: Vital Signs - 24 hr 03/25/23 15:00 03/25/23 16:30 03/25/23 16:30 Temperature Pulse Rate 65 Pulse Rate [Pulse Oximeter] 61 Respiratory Rate 24 Blood Pressure [Le ft Arm] Blood Pressure [Ri ght Arm] Pulse Oximetry 90 Oxygen Delivery Me thod Room Air Oxygen Flow Rate 03/25/23 16:30 03/25/23 20:07 03/25/23 22:56 Temperature 97.8 F Pulse Rate 55 L Pulse Rate [Pulse Oximeter] 61 58 L Respiratory Rate 24 18 Blood Pressure [Le ft Arm] Blood Pressure [Ri ght Arm] 150/69 H Pulse Oximetry 90 93 Oxygen Delivery Me thod Room Air Room Air Oxygen Flow Rate 03/25/23 23:00 03/25/23 23:20 03/25/23 23:20 Temperature 98.1 F Pulse Rate Pulse Rate [Pulse Oximeter] 58 L 58 L Respiratory Rate 18 18 18 Blood Pressure [Le ft Arm] Blood Pressure [Ri ght Arm] 139/65 Pulse Oximetry 90 90 Oxygen Delivery Me thod Room Air Room Air Oxygen Flow Rate 03/26/23 03:02 03/26/23 07:02 03/26/23 08:26 Temperature 97.8 F 97.3 F L Pulse Rate 52 L Pulse Rate [Pulse Oximeter] 57 L 58 L Respiratory Rate 18 16 Blood Pressure [Le ft Arm] 129/54 L Blood Pressure [Ri ght Arm] 109/68 Pulse Oximetry 89 93 Oxygen Delivery Me thod Room Air Nasal Cannula Oxygen Flow Rate 2 03/26/23 08:26 03/26/23 11:45 Temperature 97.8 F Pulse Rate Pulse Rate [Pulse Oximeter] 62 Respiratory Rate 16 18 Blood Pressure [Le ft Arm] 113/56 L Blood Pressure [Ri ght Arm] Pulse Oximetry 93 91 Oxygen Delivery Me thod Nasal Cannula Nasal Cannula Oxygen Flow Rate 2 1.5 Documenting provider has reviewed patient's vital signs: yes DS: Data Data Completed and Pending Labs on day of discharge: Labs from last 24 hours 03/26/23 05:55 WBC 9.69 RBC 4.39 Hgb 12.5 L Hct 38.7 MCV 88 MCH 29 MCHC 32 Plt Count 263 VBG pH 7.385 VBG pCO2 53 H VBG pO2 66.9 H VBG HCO3 32 H Sodium 136 Potassium 4.0 Chloride 102 Carbon Dioxide 30 Anion Gap 4 L BUN 19 Creatinine 0.9 Estimated Creat Clear 60.88 Estimated GFR 87 Glucose 144 H Calcium 8.7 Discharge Plan Discharge Disposition: Home w/ Parent or Adult Date of Admission: 03/21/23 15:18 Attending Provider on Discharge: Dann Skelton Primary Care Provider: Conor Phan Condition: Stable Anticipated Discharge Date/Time: 03/26/23 16:00 Discharge Medications: New cephalexin 500 mg Capsule 500 mg PO QID Qty: 20 0RF Continued amiodarone 200 mg tablet 200 mg PO DAILY allopurinol 300 mg tablet 300 mg PO DAILY lisinopril 2.5 mg tablet 2.5 mg PO HS buspirone 15 mg tablet 15 mg PO BID Eliquis 5 mg tablet 5 mg PO BID Arnuity Ellipta 200 mcg/actuation blister with device 1 inh inhalation DAILY metoprolol succinate 50 mg tablet extended release 24 hr 50 mg PO DAILY omeprazole 20 mg capsule,delayed release(DR/EC) 20 mg PO DAILY potassium chloride 10 mEq tablet extended release 20 meq PO DAILY torsemide 20 mg tablet 20 mg PO BID Rx Instructions: PLUS PRN FOR WEIGHT GAIN albuterol sulfate [Ventolin HFA] 90 mcg/actuation HFA aerosol inhaler 2 inh inhalation Q4H PRN ipratropium-albuterol 0.5 mg-3 mg(2.5 mg base)/3 mL solution for nebulization 3 ml inhalation Q6H PRN atorvastatin 40 mg tablet 40 mg PO QHS cholecalciferol (vitamin D3) 50 mcg (2,000 unit) capsule 50 mcg PO DAILY loperamide 2 mg tablet 2 mg PO Q6H PRN Rx Instructions: administer after each loose stool until symptoms controlled; do not exceed 8 mg per 24 hrs Incruse Ellipta 62.5 mcg/actuation blister with device 1 inh inhalation DAILY Discharge Orders: Discharge Order (Routine); Ordered 03/26/23 Ordered By: Dann Skelton Patient Education: Cephalexin (By mouth), Weakness (DC) Additional Instructions: Keep areas of skin blistering (right thigh and buttock/sacrum) clean and covered with a dressing. These are due to prolonged pressure so keep repositioning to avoid prolonged pressure. Activity Level: Up with assist and Use Walker Discharge Diet: Diabetic Follow Up Appointments: Conor Phan MD [Primary Care Provider] - 04/02/23 1:15 pm ([facility] for follow up.) Forms: [employer] Info Instructions
[2023-03-26 15:50] VITALS: BP 137/72; PULSE 69; RESP 16; TEMP 36.7; O2SAT 95
[2023-03-26 16:00] VITALS: RESP 16; O2SAT 95
--- NOTE | 2023-03-26 16:05 | PC.SOCIAL ---
Discharge planning- Per MD, pt is cleared for discharge and is refusing SNF. Pt would like to return home with family and family is also refusing that pt go to SNF. Pt has not put forth effort with therapy recommendations during stay. Phone call to pt's son, Jackson Lawrence at [phone] to discuss discharge plans. Pt's son informs that he was aware that pt wants to return home and he is working on getting transportation for pt to get home. Pt's daughters are working and at an appointment. Phone call to pt's son Jackson to check on transportation. Jackson informs that pt's daughter Zulema will pick pt up between 4:00 pm and 4:30 pm. Informed pt's son that pt needs clothes to go home in as he only has the hospital gown. Pt's son is aware and had purchased clothing this past weekend for pt. Pt's son states that Zulema will bring clothes when she comes to roller picker pt. Received a voicemail from pt's son, Fritz Siddiqui Jr, at [phone]. Fritz has concerns about pt discharging to home and wants to ensure pt has services in place. Pt states that he doesn't believe pt's daughters help him with his care enough and states he does not think pt has the ability to make his own decisions. Phone call to pt's son Fritz Munroe to discuss concerns and discharge plan. There was no answer, left a voicemail to return a phone call to this worker. Phone call to Martha Devi [facility] Stock Holder at [phone]. Provided update on discharge plans for today. Provided update on concerns received from pt's son, Fritz Siddiqui Jr and contact information. Martha has been in contact with pt's children Jackson, Zulema, and Margie and is comfortable with pt discharging to home today. Martha informs that she has made a referral to [facility] for an assessment to see if pt can receive services through the alternative care waiver program. Martha also states that they are looking into the option of pt's daughter Zulema being a paid caregiver. Martha will follow up with pt upon discharge. Met with pt and provided IM from medicare with information on how to appeal pt's discharge. Pt has no further questions. Social work will follow up as needed.
--- NOTE | 2023-03-26 17:56 | PC.NURSE ---
Pt alert and oriented. Pt had no complaints of pain. Pt up to chair during shift. Pt assist of one with PT staff. Pt ate meals in bed per Pt?s choice. Pt?s dressings dry and intact. Pt?s iv removed; catheter intact. Discharge done with Pt at 1530. Pt?s daughter came to flower picker Pt at 1730.?
--- NOTE | 2023-03-26 18:38 | PC.NURSE ---
When Pt's family arrived Pt nor family called nursing for assistance as instructed. Pt's family dressed Pt and transferred Pt to their own personal wheelchair. And began wheeling Pt off unit. RN saw as Pt and family were arriving at door to leave unit and informed Pt's family that he has a prescription for antibiotics at pharmacy and that discharge paperwork was gone through with the Pt and that it was in his packed bag.
--- NOTE | 2023-03-26 18:50 | PC.NURSE ---
Post-discharge-- Spoke with pt's daughter (Zulema Siddiqui) post discharge via telephone. She expressed concerns regarding patient's care while he was here and asked for pt's medical records and names of all staff involved in his care. She was offered phone number to patient advocate, which she stated that she already had, and advised to call back to hospital during business hours to obtain medical records. She asked to speak with an parts administrator so Zulema's name and phone number were given to warehouse distribution associate to return her call when they are able.
--- NOTE | 2023-03-26 18:57 | PC.NURSE ---
Post discharge- Pt's daughter called nurse's station and spoke with RN. Pt's daughter expressed concern with Pt's care. Pt's daughter wanted additional documentation and asked where Pt's discharge paperwork was. RN explained that Pt's discharge paperwork was placed in Pt's belongings bag. Pt's daughter's call transferred to charge nurse to answer further questions.
--- NOTE | 2023-03-27 10:49 | PC.SOCIAL ---
Received a phone call from Zita Mack at [facility] at [phone]. Zita will be doing an assessment on pt in the home to assess for services that may be put in place. Informed Zita that pt discharged to home yesterday. Zita will schedule with pt and pt's family to go to the home. Received a voicemail from pt's son, Fritz Siddiqui Jr, at [phone]. Pt's son requested that this worker call him back. Phone call to pt's son Fritz and left a voicemail.
== END 2023-03-26 17:30 | disposition home or self-care (01) | DRG 602 ==
LOC: ED 14:00 → MEDSURG 14:41
PROVIDERS: Internal Medicine; Admitting Provider Family Medicine; Emergency Provider Family Medicine; PCP Family Medicine; Visit Provider Family Medicine
DX: L03.311 Cellulitis of abdominal wall (principal); I50.21 Acute systolic (congestive) heart failure; L03.116 Cellulitis of left lower limb; L03.115 Cellulitis of right lower limb; Z68.43 Body mass index [BMI] 50.0-59.9, adult; I13.0 Hypertensive heart and chronic kidney disease with heart failure and stage 1 through stage 4 chronic kidney disease, or unspecified chronic kidney disease; N17.9 Acute kidney failure, unspecified; G47.33 Obstructive sleep apnea (adult) (pediatric); R53.1 Weakness; E11.22 Type 2 diabetes mellitus with diabetic chronic kidney disease; N18.31 Chronic kidney disease, stage 3a; E78.5 Hyperlipidemia, unspecified; L89.212 Pressure ulcer of right hip, stage 2; L89.152 Pressure ulcer of sacral region, stage 2
CPT/HCPCS: 36415; 71045; 73562; 80048; 80053; 80076; 81001; 82077; 82550; 82803; 82962; 83605; 83735; 83880; 84100; 84484; 85025; 85027; 86140; 87040; 87086; 87631; 93005; 93306; 94761; 97116; 97161; 97166; 97530; 97535; 99284; 99285; A9270; J0690; J1940; J2543; J7030; J7050; Q9957